=== PATIENT | male | born 1995 | race Caucasian/White ===

== ENCOUNTER → 2020-04-08 16:54 | Outpatient (CLI) | payer SELFPAY ==
[2014-10-19 03:15] VITALS: BMI 25.1
[2020-04-08 17:57] LABS: Absolute Lymphocyte Count 2.26 X10^3/uL (0.83-4.51); Absolute Neutrophil Count 3.7 X10^3/uL (2.0-7.7); Basophil# 0.06 X10^3/uL; Basophil% 0.9 % (0-1); Eosinophil# 0.16 X10^3/uL; Eosinophils% 2.4 % (0-5); Hematocrit 45.4 % (40-54); Hemoglobin 14.9 g/dL (13.0-16.5); Lymphocyte # 2.26 X10^3/ul (4.0); Lymphocyte % 33.7 % (19-41); Mean Corp Hgb Conc 32.8 g/dL (32-36); Mean Corpuscular Hgb 29.3 pg (27.0-32.0); Mean Corpuscular Volume 89.4 fL (80-94); Mean Platelet Vol. 11.5 fl (6.2-12.0); Monocyte# 0.46 X10^3/uL; Monocyte% 6.9 % (0-10); NRBC Flagged by Analyzer 0 % (0-5); Neutrophil # 3.74 X10^3/uL (2.7-7.7); Neutrophil % 55.8 % (47-70); Platelet Count 221 K/mm3 (150-450); RBC Distribution Width CV 12.3 % (11.6-14.6); RBC Distribution Width SD 40.5 fl (35.1-43.9); Red Blood Count 5.08 M/mm3 (4.6-6.2); White Blood Count 6.7 K/mm3 (4.4-11.0)
[2020-04-08 18:15] LABS: Erythrocyte Sedimentation Rate < 1 mm/hr (0-20)
[2020-04-08 18:33] LABS: CRP < 2.90 mg/L (0.0-3.0); Rheumatoid Factor < 10.0 IU/mL (<15); Uric Acid 4.9 mg/dL (3.5-7.2)
[2020-04-10 16:52] LABS: ANTINUCLEAR ANTIBODIES DIRECT Negative (Negative)
== END ==
PROVIDERS: PCP Family Medicine; Referring Provider Family Medicine; Visit Provider Family Medicine
DX: M25.50 Pain in unspecified joint (principal)
CPT/HCPCS: 36415; 84550; 85025; 85652; 86038; 86140; 86431

== ENCOUNTER → 2022-05-07 | Outpatient (CLI) | payer OTHER, SELFPAY ==
[2022-05-07 18:13] LABS: Color, Urine Yellow (Yellow); Glucose, Dipstick Normal (Normal); Ketone-Dipstick 5 mg/dl (Negative); Leukocyte Esterase-Dipstick 100 /ul (Negative); Nitrite-Dipstick Negative (Negative); Occult Blood-Urine Negative /ul (Negative); Protein-Dipstick 15 mg/dl (Negative); Urine Bilirubin Dipstick Negative (Negative); Urine Clarity Clear (Clear); Urine Urobilinogen 4 mg/dl (Normal)
[2022-05-07 18:40] LABS: ALB/GLOB Ratio 1.2 RATIO (0.9-2.4); AST(SGOT) 29 U/L (15-37); Alanine Aminotransfer ALT/SGPT 46 U/L (16-61); Albumin, Serum 3.8 g/dL (3.2-5.0); Alkaline Phosphatase 44 U/L (45-117); Anion Gap 6 (5-15); BUN 11 mg/dL (7-18); BUN/Creat Ratio 8.9 RATIO (10-20); Calcium,Total 8.7 mg/dL (8.5-10.1); Chloride 104 mmol/L (98-107); Creatinine, Serum 1.24 mg/dL (0.70-1.30); EST Glomerular Filtration Rate 73 mL/min (>60); Est Glom Filt Rate - Afr Amer 89 mL/min (>60); Globulin 3.3 g/dL (2.2-4.2); Glucose 90 mg/dL (74-106); Potassium 3.7 mmol/L (3.5-5.1); Protein, Total 7.1 g/dL (6.4-8.2); Sodium Level 139 mmol/L (136-145)
[2022-05-07 19:32] LABS: HIV - WCH Non-Reactive (Nonreactive); Syphilis Antibodies Reactive
[2022-05-07 19:41] LABS: Chlamydia Trachomatis by PCR Negative (Negative); Neisserai gonorrhoeae by PCR Negative (Negative); Probe Check PASS; Sample Adequacy Control PASS; Specimen Processing Control PASS
== END | disposition home or self-care (01) ==
PROVIDERS: PCP Family Medicine; Visit Provider Family Medicine
DX: Z00.00 Encounter for general adult medical examination without abnormal findings (principal); Z11.3 Encounter for screening for infections with a predominantly sexual mode of transmission
CPT/HCPCS: 80053; 81002; 86703; 86780; 87491; 87591

== ENCOUNTER 2023-08-27 20:14 | Emergency (ER) | payer OTHER, SELFPAY ==
[2023-08-27 20:16] VITALS: BP 153/75; PULSE 81; RESP 16; TEMP 36.2; O2SAT 100; BMI 28.0
--- NOTE | 2023-08-27 21:02 | CT_ITS ---
STUDY: CT BRAIN WITHOUT CONTRAST REASON FOR EXAM: Male, 28 years old. HEAD INJURY RADIATION DOSAGE (If Supplied By Facility): CTDIvol = ( 44.99 ) mGy, DLP = ( 796.11 ) mGycm TECHNIQUE: Transaxial CT imaging of the brain was performed without administration of intravenous contrast material. Individualized dose optimization techniques were used for this CT. COMPARISON: No relevant priors. FINDINGS: Normal soft tissue structures. Normal calvarium. Normal size ventricles and extra-axial spaces for the patient''s age. Normal white matter tracts of the cerebral hemispheres. Normal basal ganglia and thalami. Normal brainstem. Normal cerebellum. There is no intracranial hemorrhage. There are no findings of an acute ischemic infarction. Normal visualized paranasal sinuses. CT/Brain/Head without Contrast IMPRESSION: Normal unenhanced CT scan of the brain. Electronically Signed: Gentry Monique MD at 22:19 EDT ,
--- NOTE | 2023-08-27 21:03 | EX.ED.DYSGE1 ---
HPI History of Present Illness Chief Complaint: General Illness Informant: patient Onset/Context/Timing Onset: Days Context: Gradual Onset Timing: Continuous Current Severity: Mild Maximum Severity: Mild Narrative Narrative: 28-year-old male history of prior trauma causing right foot drop. Taking out a bathtub last a piece of the fiberglass cast snapped it was spring loaded and hit him in his left scalp.. He had a minor laceration that time. Never got evaluated. He has been having intermittent headaches and feeling lightheaded. Otherwise before that he said he felt fine. He has not been ill recently. He denies vomiting or diarrhea. No fever. Patient does take steroids for lifting and send otherwise has been feeling fine before the head injury. Prior similar symptoms: No Recent Illness/Hospitalization: No PFSH PFSH Medical History no medical history Home Medications ?Medication ?Instructions ?Recorded ?Last Taken ?Type diphenhydramine HCl 25 mg capsule 25 mg PO TID PRN PRN Itching ##20 10/19/14 Unknown Rx (Banophen) ibuprofen 400 mg tablet (IBU) 400 mg PO Q8H 08/27/23 Unknown History Allergy/AdvReac Type Severity Reaction Status Date / Time No Known Allergies Allergy Verified 08/27/23 20:19 Social History Smoking Status: Never smoker ROS ROS ED ROS Narrative Lightheadedness. Headaches. After head injury. Review of Systems ROS Unobtainable: Denies due to encephalopathy Constitutional Constitutional ED: Denies chills or fever(s) Eyes Eyes: Denies blurry vision ENT ENT ED: Denies ear pain Cardiovascular Cardiovascular: Denies chest pain Respiratory/Chest Respiratory/Chest: Denies cough or dyspnea Gastrointestinal Gastrointestinal: Denies abdominal pain Genitourinary Genitourinary ED: Denies dysuria or hematuria Musculoskeletal Musculoskeletal: Denies arthralgias or back pain Integumentary Denies abscess or Abrasions Neurologic Neurologic: Reports headache(s) Psychiatric Psychiatric: Denies anxiety or depression Endocrine Endocrinology: Denies cold intolerance Hematologic/Lymphatic Hematologic/Lymphatic: Reports none Allergic/Immunologic Allergic/Immunologic ED: Denies mouth swelling, tongue swelling or urticaria EXAM Physical Exam Narrative Exam Narrative: 28-year-old male no acute distress vital signs stable afebrile. H EENT exam pupils round reactive light. TMs normal. No facial trauma. Well-healed minor superficial laceration left scalp about an inch. No signs of infection or hematoma. Neck nontender. Lungs clear to auscultation. Heart regular rate and rhythm no murmur rate about 80. Chest wall ribs nontender. Abdomen soft nontender. Moving all 4 extremities. 5 of 5 aqua ammonia operator strength. Dorsi plantarflexion intact. No edema. Neurologically is awake alert no focal motor deficits. GCS 15. NIH 0. Const Vital Signs: 08/27/23 20:16 08/27/23 20:23 Temperature 97.2 F L Temperature Source Temporal Pulse Rate 81 Respiratory Rate 16 Respiratory Pattern Normal Blood Pressure 153/75 H Blood Pressure Mean 101 Pulse Ox 100 Oxygen Delivery Method Room Air Positive well nourished and well developed; Negative for obese, cachectic, contractures or unkempt General Appearance ED: well developed and NAD; Negative for unkempt, cachectic, contractures, cyanotic, diaphoretic or pallor Nutritional Appearance: Negative for cachectic or obese HEENT Reports moist mucous membranes; Denies dry mucous membranes Negative for trauma or tenderness Mouth ED: No dry mucous membranes Mouth: No dry mucous membranes Eyes PERRL and EOMs intact bilaterally General Eye ED: Negative for pale conjunctiva or scleral icterus Neck no lymphadenopathy, supple and no JVD General: Negative for tenderness Lymph Lymphatic: Negative for other Chest Wall inspection of chest normal and palpation of chest normal Chest: Negative for other Resp clear to auscultation bilaterally Effort and Inspection: Negative for retractions Auscultation: Negative for rales, rhonchi or wheezes Cardio regular rate, regular rhythm, S1 normal heart sound, S2 normal heart sound and no murmurs Palpation: Negative for palpable S3 or palpable S4 Rate: Negative for bradycardia or tachycardic Rhythm: Negative for abnormal rhythm GI normal to inspection, nondistended, normoactive bowel sounds, non-tender, non-distended and no masses Inspection: Negative for abdominal distention Auscultation: normoactive bowel sounds Palpation: soft; Negative for tender, guarding or rebound tenderness present Back/Spine no CVA tenderness General Back: Negative for CVA tenderness or other Cervical Spine: Negative for cervical spine tenderness Thoracic Spine / Upper Back: Negative for thoracic spinal tenderness or paraspinal muscle tenderness Lumbar Spine / Lower Back: Negative for lumbar spinal tenderness Extremity normal to inspection Extremity Narrative: Except he has a right foot drop from a prior injury as a child with a sciatic nerve laceration. General Extremety ED: Yes other findings; Negative for edema or tenderness General Extremity: other findings; Negative for edema Neuro oriented x3 and CN's II-XII intact bilaterally Sensorium / Orientation: alert and orientation impaired; Negative for lethargic or stuporous Motor Exam: strength 5/5 throughout Psych mental status grossly normal Appearance: Negative for unkempt Attitude: No agitated Mood & Affect: Negative for depressed, anxious or tearful Skin no rashes or lesions noted, no wounds and skin turgor normal General Skin Exam: elasticity normal; Negative for jaundice or pallor Lesions: No lesion noted Rashes: No rashes noted Trauma: Negative for abrasion Wounds: Negative for wounds noted MDM MDM MDM Narrative Medical decision making narrative: 28-year-old male has not felt well for the last 4 days since he had a head injury. He was not knocked out. He is on no blood thinners. Is a normal neurologic exam. I suspect he has a concussion. He has no other symptoms. Will obtain a CT of his head. Repeat exam at 10:10 PM. Patient is doing well. Heart and lung exam normal. He ambulated in the room without any difficulty. Awaiting his CAT scan results. I reviewed his CAT scan myself is unremarkable. History & Record Review Discussion w/independent historian: Patient Additional record(s) reviewed:: Prior inpatient record, Prior outpatient record, Prior ED visit and Prior labs Discharge Plan Triage Chief Complaint: General Illness ED Provider: Theron Jaquez Dx/Rx/DC Orders Clinical Impression: Head injury, Concussion Instructions: ED Concussion Prescriptions: No Action diphenhydramine HCl [Banophen] 25 MG capsule 25 mg PO TID PRN PRN (Reason: Itching) Qty: 20 0RF ibuprofen [IBU] 400 mg tablet 400 mg PO Q8H Primary Care Provider: Eren Shine Referrals: Eren Shine MD [Primary Care Provider] - 1 Week if not improving Activity Restrictions/Additional Instructions: CAT scan was normal. Most likely you have a mild concussion. That can give you headaches, nausea. Fatigue and increased sleep. This should progressively improve. If you are not getting better follow-up with your primary care physician in 1 to 2 weeks. At this time you do not need any lab work. Print Language: Faroese Disposition Disposition: Home, Self Care
[2023-08-27 22:30] VITALS: BP 153/75; PULSE 75; RESP 14; TEMP 36.2; O2SAT 100
== END 2023-08-27 22:31 | disposition home or self-care (01) ==
PROVIDERS: Emergency Provider Emergency Medicine; PCP Family Medicine; Visit Provider Emergency Medicine
DX: S06.0X0A Concussion without loss of consciousness, initial encounter (principal); W22.8XXA Striking against or struck by other objects, initial encounter
CPT/HCPCS: 70450; 99282

== ENCOUNTER 2024-07-29 16:07 | Outpatient (CLI) | payer OTHER, SELFPAY ==
--- NOTE | 2024-07-29 16:12 | RAD_ITS ---
PROCEDURE: SHOULDER MIN 2 VIEWS 07/29/2024 REASON FOR EXAM: PAIN RT SHOUDER TECHNIQUE: Four views of the right shoulder COMPARISON: None RAD/Shoulder min 2 Views IMPRESSION: No acute fracture or dislocations. No acute soft tissue abnormalities. No rad iographic foreign body. Reading Location: [id number]
[2024-07-29 18:50] LABS: Syphilis Antibodies Reactive (Nonreactive)
[2024-07-29 20:08] LABS: HIV Nonreactive (Nonreactive)
--- OUTSIDE RECORDS SUMMARY | 2024-07-29 22:03 | XMS RPT_ITS | CCD ---
Author Organization [facility] Care Team Providers Care Mobile Application Architect Name Role Phone Theron Jaquez Attending Unavailable Dorian Shine Primary Care Unavailable Dorian Shine MD Primary Care Provider DORIAN SHINE Primary Care Dez e DORIAN SHINE Primary Care Dez rodriguez Allergies Allergy Classification Reported Allergen(s) Allergy Type Date of Onset Reaction(s) Facility (5 sources) Acetaminophen / HYDROcodone; Translations: [HYDROCODONE-ACETA MINOPHEN] Drug Allergy 02-16-2024 GI Upset [facility] Medications Current Medications Medication Drug Class(es) Dates Sig (Normalized) Sig (Original) ciprofloxacin 2 mg/ml / hydrocortisone 10 mg/ml otic suspension (4 sources) Corticosteroid, Quinolone Antimicrobial Start: 07-24-2017 ciprofloxacin-hydroc ortisone (CIPRO HC) otic suspension Indications: Acute swimmer's ear of right side Use 3 Drops in the right ear twice daily. 1 Bottle 07/24/2017 Active Creatine (1 source) Start: 06-10-2013 Creatine Monohydrate (Bulk) Active 5000 GM MC DAILY June 10, 2013 12:00am diphenhydrAMINE hydrochloride 25 mg oral capsule (1 source) Histamine-1 Receptor Antagonist Start: 10-19-2014 take 1 capsule by mouth three times daily as needed Diphenhydramine Hcl (Benadryl) 25 MG capsule Active 25 MG PO 3 TIMES DAILY NEEDED October 19, 2014 12:00am Problems Active Problems Problem Classification Problem Date Documented Date Episodic/Chronic Immunizations and screening for infectious disease (2 sources) At risk of sexually transmitted infection ; Translations: [Contact with and (suspected) exposure to infections with a predominantly sexual mode of transmission] 02-16-2024 Episodic Residual codes; unclassified (1 source) Illness, unspecified; Translations: [Illness, unspecified] Onset: 09-05-2023 Episodic Past or Other Problems Problem Classification Problem Date Documented Da te Episodic/Chronic Other injuries and conditions due to external causes (4 sources) Injury of sciatic nerve; Translations: [Injury of sciatic nerve at hip and thigh level, unspecified leg, initial encounter] Onset: 05-29-2007 02-10-2013 Episodic Results Test Name Value Interpretation Reference Range Facil ity C. trachomatis+N. gonorrhoea e DNA TERESITA+probe Ql (Unsp spec)on 06-08-2024 C. trachomatis rRNA TERESITA+probe Ql (Unsp spec) Not detected Normal Not detected [facility] Comment on above: Order Comment: Speci men Type: URINE SPECIMEN Ordering Facility: [facility] Address: [address] [place] [address] Performed By: #### 3 6902-5, TRVAMP #### [facility] CLIA [id number] [address] [place] [address] [place] N. gonorrhoeae rRNA TERESITA+probe Ql (Unsp spec) Not detected Normal Not detected [facility] Comment on above: Order Comment: Speci men Type: URINE SPECIMEN Ordering Facility: [facility] Address: [address] [place] [address] Performed By: #### 3 6902-5, TRVAMP #### [facility] CLIA [id number] [address] [place] [address] [place] CNOVon 06-08-2024 CNOV Office Visit ([facility]) -------- IVAN OVIEDO ([id number]) 1995 M Date Time Provider Department 06/08/24 4:00 PM NEHA PROCTOR [facility] During your visit today, we recorded the following information about you: Temperature Pulse Respiration Blood pressure 98.4 degrees 88/minute 16/minute 122/80 Weight 92.4 kg Neha Proctor APRN.CNP 06/08/2024 4:38 PM Signed [facility] Subjective HPI HPI Ivan Oviedo is a 28 year old male who presents today for CC of possible std exposure 2 weeks ago. Denies any symptoms today. 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 (Patient not taking: Reported on 02/16/2024) FAMILY HISTORY Problem Relation Age of Onset None Father None Mother Diabetes Paternal Grandfather None Paternal Grandmother Cancer Maternal Grandfather ESOPHAGEAL other (CIRRHOSIS OF LIVER [Other]) Maternal Grandfather Heart Maternal Grandmother Social History Tobacco Use Smoking status: Never Smokeless tobacco: Never Substance Use Topics Alcohol use: No Drug use: No Review of Systems Constitutional: Negative for fever. Cardiovascular: Negative for chest pain. Gastrointestinal: Negative for abdominal pain, constipation, diarrhea, nausea and vomiting. Genitourinary: Negative for dysuria, flank pain, frequency and urgency. Musculoskeletal: Negative for back pain. Objective BP 122/80 Pulse 88 Temp 36.9 ?C (98.4 ?F) Resp 16 Wt 92.4 kg (203 lb 11.3 oz) SpO2 97% Physical Exam Constitutional: General: He is not in acute distress. Appearance: He is not ill-appearing, toxic-appearing or diaphoretic. HENT: Head: Normocephalic and atraumatic. Right Ear: Hearing, tympanic membrane, ear canal and external ear normal. Left Ear: Hearing, tympanic membrane, ear canal and external ear normal. Nose: Nose normal. Mouth/Throat: Pharynx: Uvula midline. Eyes: General: Lids are normal. No scleral icterus. Right eye: No discharge. Left eye: No discharge. Conjunctiva/sclera : Conjunctivae normal. Pupils: Pupils are equal, round, and reactive to light. Neck: Trachea: Trachea normal. Cardiovascular: Rate and Rhythm: Normal rate and regular rhythm. Heart sounds: Normal heart sounds. Pulmonary: Effort: Pulmonary effort is normal. Breath sounds: Normal breath sounds. Musculoskeletal: Cervical back: Normal range of motion and neck supple. Lymphadenopathy: Cervical: No cervical adenopathy. Skin: Findings: No rash. Neurological: Mental Status: He is alert and oriented to person, place, and time. {ASSESSMENT/PLAN: 1. Possible exposure to STD - ICD9: V01.6, ICD10: Z20.2 No treatment today Call and treat per results - GONORRHEA/CHLAMYDI A NAAT - TRICHOMONAS VAGINALIS NAAT Neha Proctor APRN.PLUG SAW OPERATOR History and Record Review External record(s) reviewed: prior outpatient record. Disposition The patient was discharged. Procedures Allergies As of Date: 06/08/2024 Noted Allergy Reaction VICODIN (HYDROCODONE-ACETA MINOPHE*02/16/2024 8 - GI Upset Comments: Nausea Date Reviewed: 06/08/2024 Reviewed by: Ayde Hurtado MA - Fully Assessed Reason for Visit: Std Exposure [275] Primary Visit Diagnosis:Possible exposure to STD [Z20.2] Order(s):GONORRHEA /CHLAMYDIA NAAT [SQGCCT] Order #: [id number]. #:[id number] TRICHOMONAS VAGINALIS NAAT [SQTRVAMP] Order #: [id number]. #:[id number] Prescriptions as of 06/08/2024 - ciprofloxacin-hydr ocortisone (CIPRO HC) otic suspension Use 3 Drops in the right ear twice daily. Problem List As Of Date 06/08/2024 Noted Resolved Injury to sciatic nerve [S74.00XA] 05/29/2007 Encounter Status:Closed by NEHA PROCTOR on 06/08/24 Normal [facility] TRICHOMONAS VAGINALIS NAATon 06-08-2024 T. vaginalis DNA TERESITA+probe Ql (Unsp spec) Not detected Normal Not detected [facility] Comment on above: Order Comment: Speci men Type: URINE SPECIMEN Ordering Facility: [facility] Address: [address] [place] [address] Performed By: #### 3 6902-5, RUTHANN #### [facility] CLIA [id number] [address] [place] [address] OF [facility] Radha 02-17-2024 CNPN Telephone ([facility]) -------- IVAN OVIEDO ([id number]) 1995 Date Time Provider Department 02/17/24 ROSA PRADO [facility] During your visit today, we recorded the following information about you: Rosa Prado PA 02/17/2024 8:36 AM Signed Negative for chlamydia and gonorrhea Eloisa Leal MA 02/17/2024 9:12 AM Signed Patient notified of results, verbalizes understanding of instructions. Eloisa Leal MA Allergies As of Date: 02/17/2024 Noted Allergy Reaction VICODIN (HYDROCODONE-ACETA MINOPHE*02/16/2024 8 - GI Upset Comments: Nausea Date Reviewed: 02/16/2024 Reviewed by: Sera Gallegos APRN.PLUG SAW OPERATOR - Fully Assessed Reason for Visit: Results [95] Prescriptions as of 02/17/2024 - ciprofloxacin-hydr ocortisone (CIPRO HC) otic suspension Use 3 Drops in the right ear twice daily. Problem List As Of Date 02/17/2024 Noted Resolved Injury to sciatic nerve [S74.00XA] 05/29/2007 Encounter Status:Closed by ELOISA LEAL on 02/17/24 Normal [facility] C. trachomatis+N. gonorrhoea e DNA TERESITA+probe Ql (Unsp spec)on 02-16-2024 C. trachomatis rRNA TERESITA+probe Ql (Unsp spec) Not detected Normal Not detected [facility] Comment on above: Order Comment: Speci men Type: URINE SPECIMEN Ordering Facility: [facility] Address: [address] [place] [address] Performed By: #### 3 6902-5 #### [facility] CLIA [id number] [address] [place] [address] OF [facility] N. gonorrhoeae rRNA TERESITA+probe Ql (Unsp spec) Not detected Normal Not detected [facility] Comment on above: Order Comment: Speci men Type: URINE SPECIMEN Ordering Facility: [facility] Address: [address] [place] [address] Performed By: #### 3 6902-5 #### [facility] CLIA [id number] [address] [place] [address] OF [facility] CNOVon 02-16-2024 [facility] IVAN OVIEDO ([id number]) 1995 M Date Time Provider Department 02/16/24 2:15 PM SERA GALLEGOS [facility] During your visit today, we recorded the following information about you: Temperature Pulse Respiration Blood pressure 97.2 degrees 56/minute 18/minute 133/64 Weight 89.9 kg Sera Gallegos APRN.CNP 02/16/2024 3:08 PM Signed Subjective HPI Nontoxic-appearing male presents urgent care chief complaint possible STD exposure. States was possibly exposed to gonorrhea. History of syphilis. Previously treated. Denies any other history of STDs. States he is sexually active. Does not always use protection. States that his male partner. States did not receive anal intercourse. States did perform oral intercourse. Denies any pharyngitis. denies any testicular pain penile drainage scrotal swelling dysuria frequency urgency fever nausea vomiting abdominal pain. Past medical history prescription medications allergies reviewed. 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 (Patient not taking: Reported on 02/16/2024) FAMILY HISTORY Problem Relation Age of Onset None Father None Mother Diabetes Paternal Grandfather None Paternal Grandmother Cancer Maternal Grandfather ESOPHAGEAL other (CIRRHOSIS OF LIVER [Other]) Maternal Grandfather Heart Maternal Grandmother Social History Tobacco Use Smoking status: Never Smokeless tobacco: Never Substance Use Topics Alcohol use: No Drug use: No Review of Systems Constitutional: Negative for chills, fever and malaise/fatigue. HENT: Negative for sore throat. Cardiovascular: Negative for chest pain. Gastrointestinal: Negative for abdominal pain, constipation, diarrhea, nausea and vomiting. Genitourinary: Negative for dysuria, flank pain, frequency, hematuria and urgency. Musculoskeletal: Negative for myalgias. Objective Physical Exam Vitals and nursing note reviewed. Constitutional: General: He is not in acute distress. Appearance: He is not diaphoretic. HENT: Head: Jaw: No trismus. Right Ear: Hearing normal. No decreased hearing noted. No drainage, swelling or tenderness. Tympanic membrane is not perforated, erythematous or bulging. Left Ear: Hearing normal. No decreased hearing noted. No drainage, swelling or tenderness. Tympanic membrane is not perforated, erythematous or bulging. Mouth/Throat: Pharynx: Uvula midline. No uvula swelling. Tonsils: No tonsillar abscesses. Cardiovascular: Rate and Rhythm: Normal rate and regular rhythm. Pulses: Normal pulses. Pulmonary: Effort: Pulmonary effort is normal. No respiratory distress. Breath sounds: Normal breath sounds. Chest: Chest wall: No tenderness. Abdominal: General: Bowel sounds are normal. There is no distension. Palpations: Abdomen is soft. Abdomen is not rigid. Tenderness: There is no abdominal tenderness. There is no right CVA tenderness, left CVA tenderness, guarding or rebound. Negative signs include Ley's sign and McBurney's sign. Genitourinary: Comments: Deferred exam Musculoskeletal: General: No tenderness. Lymphadenopathy: Head: Right side of head: No submental, submandibular, tonsillar, preauricular, posterior auricular or occipital adenopathy. Left side of head: No submental, submandibular, tonsillar, preauricular, posterior auricular or occipital adenopathy. Cervical: Right cervical: No superficial or posterior cervical adenopathy. Left cervical: No superficial or posterior cervical adenopathy. Skin: General: Skin is warm and dry. Findings: No rash. Neurological: Mental Status: He is alert and oriented to person, place, and time. ASSESSMENT/PLAN: 1. Possible exposure to STD - ICD9: V01.6, ICD10: Z20.2 - GONORRHEA/CHLAMYDI A NAAT Urine dip POC negative. Diagnosed with possible STD exposure. Will obtain gonorrhea chlamydia via urine test. Treat accordingly test results. Patient was educated on supportive therapies. Patient will follow up with primary care provider as needed. Patient was instructed to immediately proceed to emergency room for any new, worsening, or symptoms lasting longer than anticipated. The patient's clinical pr (more content not included)... Normal [facility] UA DIP, URINE (POC)on 2023 BILIRUBIN UA (POCT) Negative Negative [facility] CLARITY UA (POCT) Clear [facility] COLOR UA (POCT) Yellow [facility] GLUCOSE UA (POCT) Negative Negative mg/dL [facility] Hemoglobin Ql (U) Negative Negative [facility] KETONE UA (POCT) Negative Negative mg/dL [facility] LEUKOCYTES UA (POCT) Negative Negative [facility] NITRITE UA (POCT) Negative Negative [facility] PH UA (POCT) 7.0 4.5 - 8.0 [facility] Protein Ql (U) Negative Negative mg/dL [facility] SPECIFIC GRAVITY UA (POCT) 1.020 1.005 - 1.030 [facility] UROBILINOGEN UA (POCT) 1.0 Normal E.U./d L [facility] Location:[facility], [address] [place], [address] [facility] POINT OF CARE [facility] Brain/Head without Contrasto n 08-27-2023 Brain/Head without Contrast [facility] Imaging Services [address] [place], [place] [address] Brain/Head without Contrast MR#: [id number] Acct: [id number] Name: IVAN OVIEDO Rep #: [id number] : 1995 M 28 From: Gentry Monique MD PCP: Dr. Dorian Shine MD Status: REG ER Study: Brain/Head without Contrast Date of Exam: 04/20 Exam# [id number] Ordering Dr: Theron Jaquez MD [id number] STUDY: CT BRAIN WITHOUT CONTRAST REASON FOR EXAM: Male, 28 years old. HEAD INJURY RADIATION DOSAGE (If Supplied By Facility): CTDIvol = ( 44.99 ) mGy, DLP = ( 796.11 ) mGycm TECHNIQUE: Transaxial CT imaging of the brain was performed without administration of intravenous contrast material. Individualized dose optimization techniques were used for this CT. COMPARISON: No relevant priors. FINDINGS: Normal soft tissue structures. Normal calvarium. Normal size ventricles and extra-axial spaces for the patient''s age. Normal white matter tracts of the cerebral hemispheres. Normal basal ganglia and thalami. Normal brainstem. Normal cerebellum. There is no intracranial hemorrhage. There are no findings of an acute ischemic infarction. Normal visualized paranasal sinuses. CT/Brain/Head without Contrast IMPRESSION: Normal unenhanced CT scan of the brain. Electronically Signed: Gentry Monique MD at 22:19 EDT , CC: Dr. Dorian Shine MD; Dr. Theron Jaquez MD Stuffing Machine Operator: Signed Normal [facility] Emergency Department Summary on 08-27-2023 Emergency Department Summary [facility] Medical Records Department [address] [place] [address] Emergency Department Summary 08/27/23 MR#: [id number] Acct: [id number] Name: IVAN OVIEDO Rep #: [id number] : 1995 28 From: Theron Jaquez MD PCP: Dr. Dorian Shine MD Status:DEP ER Location: ED HPI History of Present Illness Chief Complaint: General Illness Informant: patient Onset/Context/[place] Onset: Days Context: Gradual Onset Timing: Continuous Current Severity: Mild Maximum Severity: Mild Narrative Narrative: 28-year-old male history of prior trauma causing right foot drop. Taking out a bathtub last a piece of the fiberglass cast snapped it was spring loaded and hit him in his left scalp.. He had a minor laceration that time. Never got evaluated. He has been having intermittent headaches and feeling lightheaded. Otherwise before that he said he felt fine. He has not been ill recently. He denies vomiting or diarrhea. No fever. Patient does take steroids for lifting and send otherwise has been feeling fine before the head injury. Prior similar symptoms: No Recent Illness/Hospitaliz ation: No PFSH PFS Medical History no medical history Home Medications ???Medication ???Instructions ???Recorded ???Last Taken ???Type diphenhydramine HCl 25 mg capsule 25 mg PO TID PRN PRN Itching ##20 10/19/14 Unknown Rx (Banophen) ibuprofen 400 mg tablet (IBU) 400 mg PO Q8H 08/27/23 Unknown History Allergy/AdvReac Type Severity Reaction Status Date / Time No Known Allergies Allergy Verified 08/27/23 20:19 Social History Smoking Status: Never smoker ROS ROS ED ROS Narrative Lightheadedness. Headaches. After head injury. Review of Systems ROS Unobtainable: Denies due to encephalopathy Constitutional Constitutional ED: Denies chills or fever(s) Eyes Eyes: Denies blurry vision ENT ENT ED: Denies ear pain Cardiovascular Cardiovascular: Denies chest pain Respiratory/Chest Respiratory/Chest: Denies cough or dyspnea Gastrointestinal Gastrointestinal: Denies abdominal pain Genitourinary Genitourinary ED: Denies dysuria or hematuria Musculoskeletal Musculoskeletal: Denies arthralgias or back pain Integumentary Denies abscess or Abrasions Neurologic Neurologic: Reports headache(s) Psychiatric Psychiatric: Denies anxiety or depression Endocrine Endocrinology: Denies cold intolerance Hematologic/Lympha tic Hematologic/Lympha tic: Reports none Allergic/Immunolog ic Allergic/Immunolog ic ED: Denies mouth swelling, tongue swelling or urticaria EXAM Physical Exam Narrative Exam Narrative: 28-year-old male no acute distress vital signs stable afebrile. H EENT exam pupils round reactive light. TMs normal. No facial trauma. Well-healed minor superficial laceration left scalp about an inch. No signs of infection or hematoma. Neck nontender. Lungs clear to auscultation. Heart regular rate and rhythm no murmur rate about 80. Chest wall ribs nontender. Abdomen soft nontender. Moving all 4 extremities. 5 of 5 divine healer strength. Dorsi plantarflexion intact. No edema. Neurologically is awake alert no focal motor deficits. GCS 15. NIH 0. Const Vital Signs: 08/27/23 20:16 08/27/23 20:23 Temperature 97.2 F L Temperature Source Temporal Pulse Rate 81 Respiratory Rate 16 Respiratory Pattern Normal Blood Pressure 153/75 H Blood Pressure Mean 101 Pulse Ox 100 Oxygen Delivery Method Room Air Positive well nourished and well developed; Negative for obese, cachectic, contractures or unkempt General Appearance ED: well developed and NAD; Negative for unkempt, cachectic, contractures, cyanotic, diaphoretic or pallor Nutritional Appearance: Negative for cachectic or obese HEENT Reports moist mucous membranes; Denies dry mucous membranes Negative for trauma or tenderness Mouth ED: No dry mucous membranes Mouth: No dry mucous membranes Eyes PERRL and EOMs intact bilaterally General Eye ED: Negative for pale conjunctiva or scleral icterus Neck no lymphadenopathy, supple and no JVD General: Negative for tenderness Lymph Lymphatic: Negative for other Chest Wall inspection of chest normal and palpation of chest normal Chest: Negative for other Resp clear to auscultation bilaterally Effort and Inspection: Negative for retractions Auscultation: Negative for rales, rhonchi or wheezes Cardio regular rate, regular rhythm, S1 normal heart sound, S2 normal heart sound and no murmurs Palpation: Negative for palpable S3 or palpable S4 Rate: Negative for bradycardia or tachycardic Rhythm: Negative for abnormal rhythm GI normal to inspection, nondistended, normoactive bowel sounds, non-tender, non-distended and no masses Inspection: Negative fo (more content not included)... Normal [facility] Basophil percentageOrdered B y: Dr. Shine on 05-07-2022 C. trachomatis DNA TERESITA+probe Ql (Unsp spec) Negative Negative [facility] Bilirubin [Mass/Vol] 1.20 mg/dL 0.20-1.00 [facility] Comment on above: For patients on eltr ombopag therapy, use of Dimension [place] TBIL is not recommended. Chloride [Moles/Vol] 104 mmol/L 98-107 [facility] Glucose [Mass/Vol] 90 mg/dL 74-106 [facility] Potassium [Moles/Vol] 3.7 mmol/L 3.5-5.1 [facility] Protein [Mass/Vol] 7.1 g/dL 6.4-8.2 [facility] Sodium [Moles/Vol] 139 mmol/L 136-145 [facility] Bilirubin Test strip Ql (U)O rdered By: Dr. Shine on 05-07-2022 Bilirubin Ql (U) Negative Negative [facility] HIV 1 and HIV-2 antibody ass ay with HIV-1 p24 antigen detectionOrdered By: Dr. Shine on 05-07-2022 HIV 1+2 Ab+HIV1 p24 Ag IA Ql Non-Reactive Nonreactive [facility] Ketones Test strip Ql (U)Ord ered By: Dr. Shine on 05-07-2022 Ketones Ql (U) 5 mg/dl Negative [facility] Laboratory - Chemistry and C hemistry - challengeOrdered By: Dr. Shine on 05-07-2022 ALP [Catalytic activity/Vol] 44 U/L 45-[address] [facility] ALT [Catalytic activity/Vol] 46 U/L 16-[address] [facility] CO2 [Moles/Vol] 29.0 mmol/L 21.0-32.[address] [facility] Globulin (S) [Mass/Vol] 3.3 g/dL 2.2-4.2 [facility] Urea nitrogen/Creatinine [Mass ratio] 8.9 mg/mg 10-[address] [facility] Neisseria gonorrhoeae detect ion by PCROrdered By: Dr. Shine on 05-07-2022 N. gonorrhoeae DNA TERESITA+probe Ql (Cervical mucus) Negative Negative [facility] Nitrite Test strip Ql (U)Ord ered By: Dr. Shine on 05-07-2022 Nitrite Ql (U) Negative Negative [facility] No Panel InformationOrdered By: Dr. Shine on 05-07-2022 Estimated GFR (MDRD) Amer 89 mL/min >[address] [facility] Comment on above: GFR Calc Estimated GFR (MDRD) Non-Af Amer 73 mL/min >[address] [facility] Comment on above: Non- GFR Calc Protein Test strip Ql (U)Ord ered By: Dr. Shine on 05-07-2022 Protein Ql (U) 15 mg/dl Negative [facility] Serum Treponema species anti body detectionOrdered By: Dr. Shine on 05-07-2022 Treponema sp Ab Ql (S) Reactive [facility] Serum or plasma albumin acacia urement (mass/volume)Ordered By: Dr. Shine on 05-07-2022 Albumin [Mass/Vol] 3.8 g/dL 3.2-5.0 [facility] Serum or plasma albumin/glob ulin mass ratioOrdered By: Dr. Shine on 05-07-2022 Albumin/Globulin [Mass ratio] 1.2 {ratio} 0.9-2.[address] [facility] Serum or plasma calcium acacia urement (mass/volume)Ordered By: Dr. Shine on 05-07-2022 Calcium [Mass/Vol] 8.7 mg/dL 8.5-10.1 [facility] Serum or plasma creatinine m easurement (mass/volume)Ordered By: Dr. Shine on 05-07-2022 Creatinine [Mass/Vol] 1.24 mg/dL 0.70-1.30 [facility] Comment on above: The validity of the calculated GFR & GFRAA in patients over 70 years has not been determined. Clinical correlation is essential. Serum or plasma urea nitroge n measurement (mass/volume)Ordered By: Dr. Shine on 05-07-2022 Urea nitrogen [Mass/Vol] 11 mg/dL 7-[address] [facility] Thin prep Papanicolaou smear with manual screeningOrdered By: Dr. Shine on 05-07-2022 Thin prep Papanicolaou smear with manual screening 29 U/L 15-[address] [facility] Thin prep Papanicolaou smear with manual screening 6 5-[address] [facility] Urine blood detectionOrdered By: Dr. Shine on 05-07-2022 RBC Ql (U) Negative Negative [facility] Urine clarityOrdered By: Dr. Shine on 05-07-2022 Clarity (U) Clear Clear [facility] Urine color determinationOrd ered By: Dr. Shine on 05-07-2022 Color (U) Yellow Yellow [facility] Urine glucose detectionOrder ed By: Dr. Shine on 05-07-2022 Glucose Ql (U) Normal mg/dl Normal [facility] Urine leukocyte esterase det ection by dipstickOrdered By: Dr. Shine on 05-07-2022 Leukocyte esterase Test strip Ql (U) 100 /ul Negative [facility] Urine pHOrdered By: Dr. Adalgisa sanchez on 05-07-2022 pH (U) 7.0 [pH] 5.0 - 8.[address] [facility] Urine specific gravity measu rementOrdered By: Dr. Shine on 05-07-2022 Specific gravity (U) [Rel density] 1.010 1.002-1.[address] [facility] Urobilinogen Auto test strip Ql (U)Ordered By: Dr. Shine on 05-07-2022 Urobilinogen Ql (U) 4 mg/dl Normal [facility] Vital Signs Date Time Vital Sign Value Performing Clinician Faci lity 06-08-2024 15:57-0400 Body temperature 98.4 [degF] Neha Hitesh SONAR SUBSYSTEM EQUIPMENT OPERATOR.PLUG SAW OPERATOR Work Phone: [facility] 06-08-2024 15:57-0400 Body weight 92.4 kg Neha Proctor SONAR SUBSYSTEM EQUIPMENT OPERATOR.PLUG SAW OPERATOR Work Phone: [facility] 06-08-2024 15:57-0400 Diastolic blood pressure 80 mm[Hg] Neha Hitesh SONAR SUBSYSTEM EQUIPMENT OPERATOR.PLUG SAW OPERATOR Work Phone: [facility] 06-08-2024 15:57-0400 Heart rate 88 /min Neha Hitesh SONAR SUBSYSTEM EQUIPMENT OPERATOR.PLUG SAW OPERATOR Work Phone: [facility] 06-08-2024 15:57-0400 Respiratory rate 16 /min Neha Hitesh SONAR SUBSYSTEM EQUIPMENT OPERATOR.PLUG SAW OPERATOR Work Phone: [facility] 06-08-2024 15:57-0400 SaO2% (BldA) [Mass fraction] 97 % Neha Proctor SONAR SUBSYSTEM EQUIPMENT OPERATOR.PLUG SAW OPERATOR Work Phone: [facility] 06-08-2024 15:57-0400 Systolic blood pressure 122 mm[Hg] Neha Proctor SONAR SUBSYSTEM EQUIPMENT OPERATOR.PLUG SAW OPERATOR Work Phone: [facility] 02-16-2024 14:25-0500 Body temperature 97.2 [degF] Sera Pendbury SONAR SUBSYSTEM EQUIPMENT OPERATOR.PLUG SAW OPERATOR Work Phone: [facility] 02-16-2024 14:25-0500 Body weight 89.9 [facility] SONAR SUBSYSTEM EQUIPMENT OPERATOR.PLUG SAW OPERATOR Work Phone: [facility] 02-16-2024 14:25-0500 Diastolic blood pressure 64 mm[Hg] Sera Pendlebury SONAR SUBSYSTEM EQUIPMENT OPERATOR.PLUG SAW OPERATOR Work Phone: [facility] 02-16-2024 14:25-0500 Heart rate 56 /min Sera Pendlebury SONAR SUBSYSTEM EQUIPMENT OPERATOR.PLUG SAW OPERATOR Work Phone: [facility] 02-16-2024 14:25-0500 Respiratory rate 18 /[facility] SONAR SUBSYSTEM EQUIPMENT OPERATOR.PLUG SAW OPERATOR Work Phone: [facility] 02-16-2024 14:25-0500 SaO2% (BldA) [Mass fraction] 99 % Sera Pendlebury SONAR SUBSYSTEM EQUIPMENT OPERATOR.PLUG SAW OPERATOR Work Phone: [facility] 02-16-2024 14:25-0500 Systolic blood pressure 133 mm[Hg] Sera Gallegos APRN.PLUG SAW OPERATOR Work Phone: [facility] Encounters Encounter Date Encounter Type Care Provider Facility Start: 06-09-2024 End: 06-09-2024 Follow-up encounter Kesha Canela APRN.PLUG SAW OPERATOR Work Phone: [facility] Start: 06-08-2024 End: 06-08-2024 ambulatory [facility] Facility:[facility] Start: 06-08-2024 End: 06-08-2024 Patient encounter procedure Neha King FLORES.PLUG SAW OPERATOR Work Phone: [facility] Comment on above: Possible exposure to STD (Primary Dx) Start: 02-17-2024 End: 02-17-2024 Telephone encounter Rosa KEN Work Phone: [facility] Comment on above: Results Start: 02-16-2024 End: 02-16-2024 ambulatory [facility] Facility:[facility] Start: 02-16-2024 End: 02-16-2024 Office outpatient visit 15 minutes Sera Gallegos APRN.PLUG SAW OPERATOR Work Phone: [facility] Comment on above: Possible exposure to STD (Primary Dx) Start: 08-27-2023 End: 08-27-2023 Emergency department patient visit Theron Jaquez Facility:[facility] Start: 05-07-2022 End: 05-07-[address] [facility] Work Phone: Start: 05-07-2022 End: 05-07-20[address] [facility] Procedures Date Procedure Procedure Detail Performing Clinician Start: 02-16-2024 Urnls dip stick/tabl et rgnt auto w/o microscopy [facility] Provider Plan of Treatment Date Care Activity Detail Author Start: 11-22-2025 Urine microalbumin profile DTaP,Tdap,Td Vaccine (5 - Td or Tdap) [facility] Start: 10-27-2023 Covid-19 Vaccine ( season) Covid-19 Vaccine ( season) [facility] Start: 10-27-2023 Influenza vaccination Influenza Vacc ine (#1) [facility] Start: 05-07-2022 Procedure [facility] Start: 01-15-2012 HPV Vaccine (3 - Mal e 3-dose series) HPV Vaccine (3 - Male 3-dose series) [facility] Start: 07-23-2011 Anxiety Screening Anxiety Screening [facility] Start: 07-23-2011 Depression Screening Depression Scre ening [facility] Start: 07-23-2011 Hepatitis C screening Hepatitis C Sc reening [facility] Start: 07-23-2011 HIV screening HIV Screening [facility] Chlamydia trachomatis+Neisseria gonorrhoeae DNA [Presence] in Unspecified specimen by TERESITA with probe detection GONORRHEA/CHLAMYDIA NAAT Lab Routine Possible exposure to STD 02/16/2024 3:06 PM EST [facility] Chlamydia trachomatis+Neisseria gonorrhoeae DNA [Presence] in Unspecified specimen by TERESITA with probe detection GONORRHEA/CHLAMYDIA NAAT Lab Routine Possible exposure to STD Ordered: 06/08/2024 [facility] Work Phone: Comment on above: Ordered: 06/08/2024 TRICHOMONAS VAGINALI S NAAT TRICHOMONAS VAGINALIS NAAT Lab Routine Possible exposure to STD Ordered: 06/08/2024 [facility] Comment on above: Ordered: 06/08/2024 UA DIP OB, URINE (POC) UA DIP OB , URINE (POC) Lab Routine Possible exposure to STD Ordered: 02/16/2024 [facility] Work Phone: Comment on above: Ordered: 02/16/2024 Immunizations Immunization Date Immunization Notes Care Provider Estela carrillo 11-23-2015 influenza virus vaccine, unspecified formulation Sera Gallegos APRN.CNP Work Phone: [facility] 02-10-2013 hepatitis A vaccine, unspecified formulation Sera Gallegos APRN.CNP Work Phone: [facility] 02-10-2013 influenza virus vaccine, unspecified formulation Sera Gallegos APRN.CNP Work Phone: [facility] 09-14-2011 human papilloma viru s vaccine, quadrivalent [facility] SONAR SUBSYSTEM EQUIPMENT OPERATOR.PLUG SAW OPERATOR Work Phone: [facility] 09-14-2011 Meningococcal, MCV4, unspecified conjugate formulation(groups A, C, Y and W-135) [facility] SONAR SUBSYSTEM EQUIPMENT OPERATOR.PLUG SAW OPERATOR Work Phone: [facility] 04-19-2011 hepatitis A vaccine, unspecified formulation [facility] SONAR SUBSYSTEM EQUIPMENT OPERATOR.PLUG SAW OPERATOR Work Phone: [facility] 04-19-2011 human papilloma viru s vaccine, quadrivalent [facility] SONAR SUBSYSTEM EQUIPMENT OPERATOR.PLUG SAW OPERATOR Work Phone: [facility] 11-11-2006 Meningococcal, MCV4, unspecified conjugate formulation(groups A, C, Y and W-135) [facility] SONAR SUBSYSTEM EQUIPMENT OPERATOR.PLUG SAW OPERATOR Work Phone: [facility] 11-11-2006 tetanus toxoid, reduced diphtheria toxoid, and acellular pertussis vaccine, adsorbed [facility] SONAR SUBSYSTEM EQUIPMENT OPERATOR.PLUG SAW OPERATOR Work Phone: [facility] Work Phone: 09-02-1998 diphtheria, tetanus toxoids and acellular pertussis vaccine [facility] SONAR SUBSYSTEM EQUIPMENT OPERATOR.PLUG SAW OPERATOR Work Phone: [facility] 09-02-1998 measles, mumps and rubella virus vaccine [facility] SONAR SUBSYSTEM EQUIPMENT OPERATOR.PLUG SAW OPERATOR Work Phone: [facility] 09-02-1998 trivalent poliovirus vaccine, live, oral [facility] SONAR SUBSYSTEM EQUIPMENT OPERATOR.PLUG SAW OPERATOR Work Phone: [facility] 01-21-1995 diphtheria, tetanus toxoids and acellular pertussis vaccine [facility] SONAR SUBSYSTEM EQUIPMENT OPERATOR.PLUG SAW OPERATOR Work Phone: [facility] 01-21-1995 haemophilus influenz ae type b vaccine, HbOC conjugate [facility] SONAR SUBSYSTEM EQUIPMENT OPERATOR.PLUG SAW OPERATOR Work Phone: [facility] 09-10-1994 measles, mumps and rubella virus vaccine [facility] SONAR SUBSYSTEM EQUIPMENT OPERATOR.PLUG SAW OPERATOR Work Phone: [facility] 01-31-1994 DTP-Haemophilus influenzae type b conjugate vaccine Sera Pendlebury SONAR SUBSYSTEM EQUIPMENT OPERATOR.PLUG SAW OPERATOR Work Phone: [facility] 01-31-1994 hepatitis B vaccine, pediatric or pediatric/adolescent dosage Sera Pendlebury SONAR SUBSYSTEM EQUIPMENT OPERATOR.PLUG SAW OPERATOR Work Phone: [facility] 01-31-1994 trivalent poliovirus vaccine, live, oral Sera Pendlebury SONAR SUBSYSTEM EQUIPMENT OPERATOR.PLUG SAW OPERATOR Work Phone: [facility] 1993 DTP-Haemophilus influenzae type b conjugate vaccine Sera Pendlebury SONAR SUBSYSTEM EQUIPMENT OPERATOR.PLUG SAW OPERATOR Work Phone: [facility] 1993 trivalent poliovirus vaccine, live, oral Sera Pendlebury SONAR SUBSYSTEM EQUIPMENT OPERATOR.PLUG SAW OPERATOR Work Phone: [facility] 1993 DTP-Haemophilus influenzae type b conjugate vaccine Sera Pendlebury SONAR SUBSYSTEM EQUIPMENT OPERATOR.PLUG SAW OPERATOR Work Phone: [facility] Work Phone: 1993 hepatitis B vaccine, pediatric or pediatric/adolescent dosage Sera Pendlebury SONAR SUBSYSTEM EQUIPMENT OPERATOR.PLUG SAW OPERATOR Work Phone: [facility] 1993 trivalent poliovirus vaccine, live, oral Sera Pendlebury SONAR SUBSYSTEM EQUIPMENT OPERATOR.PLUG SAW OPERATOR Work Phone: [facility] 1993 hepatitis B vaccine, pediatric or pediatric/adolescent dosage Sera Pendlebury SONAR SUBSYSTEM EQUIPMENT OPERATOR.PLUG SAW OPERATOR Work Phone: [facility] Payers Date Payer Category Payer Self-pay [id number] 2023 Unknown [id number] 2018 Unknown [employer]MO [employer] PPO [id number] 2018-Present [phone] [address] [place] [address] PPO [id number] 2018 Unknown [id number] Unknown [id number] Social History Date Type Detail Facility Start: 10-19-2014 [facility] if [facility] Start: 1995 Sex Assigned At Male [facility] Start: 02-16-2024 [facility] Never smoked tobacco [facility] Start: 02-16-2024 Tobacco use and exposure Smokeless tobacco non-user [facility] Start: 02-16-2024 Alcoholic beverage intake Current non-drinker of alcohol (finding) [facility] Start: 02-02-2020 End: 02-16-2024 History of Social function [facility] Start: 02-02-2020 End: 02-16-2024 Tobacco use panel [facility] National Score (1-10 0), lower number is lower risk Not on file [facility] Start: 1993 Sex assigned at Not on file [facility] Functional Status Date Assessment Result Facility 01-12-2014 Are you deaf, or do you have serious difficulty hearing No 01/12/2014 3:58 PM Beckie Scott RN No [facility] 01-12-2014 Are you blind, or do you have serious difficulty seeing, even when wearing glasses No 01/12/2014 3:58 PM Beckie Scott RN No [facility] 01-12-2014 Do you have serious difficulty walking or climbing stairs No 01/12/2014 3:58 PM Beckie Scott RN No [facility] 01-12-2014 Do you have difficul ty dressing or bathing No 01/12/2014 3:58 PM Beckie Scott RN No [facility] 01-12-2014 Because of a physica l, mental, or emotional condition, do you have difficulty doing errands alone such as visiting a physician's office or shopping No 01/12/2014 3:58 PM Beckie Scott RN No [facility] Mental Status Date Assessment Result Facility 01-12-2014 Because of a physica l, mental, or emotional condition, do you have serious difficulty concentrating, remembering, or making decisions Yes 01/12/2014 3:58 PM Beckie Scott RN Yes [facility] Clinical Notes 02-16-2024 to 06-09-2024 Telephone Encounter - Angy Mullen LPN - 06/09/2024 7:57 AM EDTTelephone Encounter - Angy Mullen LPN - 06/09/2024 7:57 AM EDTNeha Proctor APRN.ANASTASIA - 06/08/2024 4:08 PM EDT Note Date & Type Note Facility 06-09-2024 Telephone encount er Note Patient notified.Angy Mullen LPN [facility] 06-09-2024 Miscellaneous Notes Formattin g of this note might be different from the original. Patient notified.Angy Mullen LPN Negative for trichomonas, chlamydia, gonorrhea. Please call and notify thank you documented in this encounter [facility] 06-09-2024 Telephone encount er Note Negative for trichomonas, chlamydia, gonorrhea. Please call and notify thank you [facility] Work Phone: 06-08-2024 Note HNO ID: [id number] Author: NEHA PROCTOR APRN.ANASTASIA Service: ? Author Type: Nurse Practitioner Type: Progress Notes Filed: 06/08/2024 16:38 Note Text: [facility] Subjective HPI HPI Ivan Oviedo is a 28 year old male who presents today for CC of possible std exposure 2 weeks ago. Denies any symptoms today. 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 (Patient not taking: Reported on 02/16/2024) FAMILY HISTORY Problem Relation Age of Onset None Father None Mother Diabetes Paternal Grandfather None Paternal Grandmother Cancer Maternal Grandfather ESOPHAGEAL other (CIRRHOSIS OF LIVER [Other]) Maternal Grandfather Heart Maternal Grandmother Social History Tobacco Use Smoking status: Never Smokeless tobacco: Never Substance Use Topics Alcohol use: No Drug use: No Review of Systems Constitutional: Negative for fever. Cardiovascular: Negative for chest pain. Gastrointestinal: Negative for abdominal pain, constipation, diarrhea, nausea and vomiting. Genitourinary: Negative for dysuria, flank pain, frequency and urgency. Musculoskeletal: Negative for back pain. Objective BP 122/80 Pulse 88 Temp 36.9 ?C (98.4 ?F) Resp 16 Wt 92.4 kg (203 lb 11.3 oz) SpO2 97% Physical Exam Constitutional: General: He is not in acute distress. Appearance: He is not ill-appearing, toxic-appearing or diaphoretic. HENT: Head: Normocephalic and atraumatic. Right Ear: Hearing, tympanic membrane, ear canal and external ear normal. Left Ear: Hearing, tympanic membrane, ear canal and external ear normal. Nose: Nose normal. Mouth/Throat: Pharynx: Uvula midline. Eyes: General: Lids are normal. No scleral icterus. Right eye: No discharge. Left eye: No discharge. Conjunctiva/sclera: Conjunctivae normal. Pupils: Pupils are equal, round, and reactive to light. Neck: Trachea: Trachea normal. Cardiovascular: Rate and Rhythm: Normal rate and regular rhythm. Heart sounds: Normal heart sounds. Pulmonary: Effort: Pulmonary effort is normal. Breath sounds: Normal breath sounds. Musculoskeletal: Cervical back: Normal range of motion and neck supple. Lymphadenopathy: Cervical: No cervical adenopathy. Skin: Findings: No rash. Neurological: Mental Status: He is alert and oriented to person, place, and time. {ASSESSMENT/PLAN: 1. Possible exposure to STD - ICD9: V01.6, ICD10: Z20.2 No treatment today Call and treat per results - GONORRHEA/CHLAMYDIA NAAT - TRICHOMONAS VAGINALIS NAAT Neha Proctor APRN.PLUG SAW OPERATOR History and Record Review External record(s) reviewed: prior outpatient record. Disposition The patient was discharged. Procedures [facility] 06-08-2024 History of Presen t illness Narrative [facility] Subjective HPI HPI Ivan Oviedo is a 28 year old male who presents today for CC of possible std exposure 2 weeks ago. Denies any symptoms today. 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 (Patient not taking: Reported on 02/16/2024) FAMILY HISTORY Problem Relation Age of Onset None Father None Mother Diabetes Paternal Grandfather None Paternal Grandmother Cancer Maternal Grandfather ESOPHAGEAL other (CIRRHOSIS OF LIVER [Other]) Maternal Grandfather Heart Maternal Grandmother Social History Tobacco Use Smoking status: Never Smokeless tobacco: Never Substance Use Topics Alcohol use: No Drug use: No Review of Systems Constitutional: Negative for fever. Cardiovascular: Negative for chest pain. Gastrointestinal: Negative for abdominal pain, constipation, diarrhea, nausea and vomiting. Genitourinary: Negative for dysuria, flank pain, frequency and urgency. Musculoskeletal: Negative for back pain. Objective BP 122/80 Pulse 88 Temp 36.9 C (98.4 F) Resp 16 Wt 92.4 kg (203 lb 11.3 oz) SpO2 97% Physical Exam Constitutional: General: He is not in acute distress. Appearance: He is not ill-appearing, toxic-appearing or diaphoretic. HENT: Head: Normocephalic and atraumatic. Right Ear: Hearing, tympanic membrane, ear canal and external ear normal. Left Ear: Hearing, tympanic membrane, ear canal and external ear normal. Nose: Nose normal. Mouth/Throat: Pharynx: Uvula midline. Eyes: General: Lids are normal. No scleral icterus. Right eye: No discharge. Left eye: No discharge. Conjunctiva/sclera: Conjunctivae normal. Pupils: Pupils are equal, round, and reactive to light. Neck: Trachea: Trachea normal. Cardiovascular: Rate and Rhythm: Normal rate and regular rhythm. Heart sounds: Normal heart sounds. Pulmonary: Effort: Pulmonary effort is normal. Breath sounds: Normal breath sounds. Musculoskeletal: Cervical back: Normal range of motion and neck supple. Lymphadenopathy: Cervical: No cervical adenopathy. Skin: Findings: No rash. Neurological: Mental Status: He is alert and oriented to person, place, and time. {ASSESSMENT/PLAN: 1. Possible exposure to STD - ICD9: V01.6, ICD10: Z20.2 No treatment today Call and treat per results - GONORRHEA/CHLAMYDIA NAAT - TRICHOMONAS VAGINALIS NAAT Neha Proctor APRN.PLUG SAW OPERATOR History and Record Review External record(s) reviewed: prior outpatient record. Disposition The patient was discharged. Procedures documented in this encounter [facility] 02-17-2024 Telephone encount er Note Patient notified of results, verbalizes understanding of instructions. Eloisa Leal MA [facility] 02-17-2024 Miscellaneous Notes Formattin g of this note might be different from the original. Patient notified of results, verbalizes understanding of instructions. Eloisa Leal MA Negative for chlamydia and gonorrhea documented in this encounter [facility] 02-17-2024 Telephone encount er Note Negative for chlamydia and gonorrhea [facility] Work Phone: 02-16-2024 Note HNO ID: [id number] Author: SERA GALLEGOS APRN.PLUG SAW OPERATOR Service: ? Author Type: Nurse Practitioner Type: Progress Notes Filed: 02/16/2024 15:08 Note Text: Subjective HPI Nontoxic-appearing male presents urgent care chief complaint possible STD exposure. States was possibly exposed to gonorrhea. History of syphilis. Previously treated. Denies any other history of STDs. States he is sexually active. Does not always use protection. States that his male partner. States did not receive anal intercourse. States did perform oral intercourse. Denies any pharyngitis. denies any testicular pain penile drainage scrotal swelling dysuria frequency urgency fever nausea vomiting abdominal pain. Past medical history prescription medications allergies reviewed. 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 (Patient not taking: Reported on 02/16/2024) FAMILY HISTORY Problem Relation Age of Onset None Father None Mother Diabetes Paternal Grandfather None Paternal Grandmother Cancer Maternal Grandfather ESOPHAGEAL other (CIRRHOSIS OF LIVER [Other]) Maternal Grandfather Heart Maternal Grandmother Social History Tobacco Use Smoking status: Never Smokeless tobacco: Never Substance Use Topics Alcohol use: No Drug use: No Review of Systems Constitutional: Negative for chills, fever and malaise/fatigue. HENT: Negative for sore throat. Cardiovascular: Negative for chest pain. Gastrointestinal: Negative for abdominal pain, constipation, diarrhea, nausea and vomiting. Genitourinary: Negative for dysuria, flank pain, frequency, hematuria and urgency. Musculoskeletal: Negative for myalgias. Objective Physical Exam Vitals and nursing note reviewed. Constitutional: General: He is not in acute distress. Appearance: He is not diaphoretic. HENT: Head: Jaw: No trismus. Right Ear: Hearing normal. No decreased hearing noted. No drainage, swelling or tenderness. Tympanic membrane is not perforated, erythematous or bulging. Left Ear: Hearing normal. No decreased hearing noted. No drainage, swelling or tenderness. Tympanic membrane is not perforated, erythematous or bulging. Mouth/Throat: Pharynx: Uvula midline. No uvula swelling. Tonsils: No tonsillar abscesses. Cardiovascular: Rate and Rhythm: Normal rate and regular rhythm. Pulses: Normal pulses. Pulmonary: Effort: Pulmonary effort is normal. No respiratory distress. Breath sounds: Normal breath sounds. Chest: Chest wall: No tenderness. Abdominal: General: Bowel sounds are normal. There is no distension. Palpations: Abdomen is soft. Abdomen is not rigid. Tenderness: There is no abdominal tenderness. There is no right CVA tenderness, left CVA tenderness, guarding or rebound. Negative signs include Ley's sign and McBurney's sign. Genitourinary: Comments: Deferred exam Musculoskeletal: General: No tenderness. Lymphadenopathy: Head: Right side of head: No submental, submandibular, tonsillar, preauricular, posterior auricular or occipital adenopathy. Left side of head: No submental, submandibular, tonsillar, preauricular, posterior auricular or occipital adenopathy. Cervical: Right cervical: No superficial or posterior cervical adenopathy. Left cervical: No superficial or posterior cervical adenopathy. Skin: General: Skin is warm and dry. Findings: No rash. Neurological: Mental Status: He is alert and oriented to person, place, and time. ASSESSMENT/PLAN: 1. Possible exposure to STD - ICD9: V01.6, ICD10: Z20.2 - GONORRHEA/CHLAMYDIA NAAT Urine dip POC negative. Diagnosed with possible STD exposure. Will obtain gonorrhea chlamydia via urine test. Treat accordingly test results. Patient was educated on supportive therapies. Patient will follow up with primary care provider as needed. Patient was instructed to immediately proceed to emergency room for any new, worsening, or symptoms lasting longer than anticipated. The patient's clinical presentation is otherwise unremarkable at this time. Based on exam and clinical finding, the patient is stable for discharge. Plan of care was discussed with patient. Patient verbalizes understanding and agrees to plan of care. This note was generated using Madefire software. It may contain er (more content not included)... [facility] 02-16-2024 History of Presen t illness Narrative Subjective HPI Nontoxic-appearing male presents urgent care chief complaint possible STD exposure. States was possibly exposed to gonorrhea. History of syphilis. Previously treated. Denies any other history of STDs. States he is sexually active. Does not always use protection. States that his male partner. States did not receive anal intercourse. States did perform oral intercourse. Denies any pharyngitis. denies any testicular pain penile drainage scrotal swelling dysuria frequency urgency fever nausea vomiting abdominal pain. Past medical history prescription medications allergies reviewed. 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 (Patient not taking: Reported on 02/16/2024) FAMILY HISTORY Problem Relation Age of Onset None Father None Mother Diabetes Paternal Grandfather None Paternal Grandmother Cancer Maternal Grandfather ESOPHAGEAL other (CIRRHOSIS OF LIVER [Other]) Maternal Grandfather Heart Maternal Grandmother Social History Tobacco Use Smoking status: Never Smokeless tobacco: Never Substance Use Topics Alcohol use: No Drug use: No Review of Systems Constitutional: Negative for chills, fever and malaise/fatigue. HENT: Negative for sore throat. Cardiovascular: Negative for chest pain. Gastrointestinal: Negative for abdominal pain, constipation, diarrhea, nausea and vomiting. Genitourinary: Negative for dysuria, flank pain, frequency, hematuria and urgency. Musculoskeletal: Negative for myalgias. Objective Physical Exam Vitals and nursing note reviewed. Constitutional: General: He is not in acute distress. Appearance: He is not diaphoretic. HENT: Head: Jaw: No trismus. Right Ear: Hearing normal. No decreased hearing noted. No drainage, swelling or tenderness. Tympanic membrane is not perforated, erythematous or bulging. Left Ear: Hearing normal. No decreased hearing noted. No drainage, swelling or tenderness. Tympanic membrane is not perforated, erythematous or bulging. Mouth/Throat: Pharynx: Uvula midline. No uvula swelling. Tonsils: No tonsillar abscesses. Cardiovascular: Rate and Rhythm: Normal rate and regular rhythm. Pulses: Normal pulses. Pulmonary: Effort: Pulmonary effort is normal. No respiratory distress. Breath sounds: Normal breath sounds. Chest: Chest wall: No tenderness. Abdominal: General: Bowel sounds are normal. There is no distension. Palpations: Abdomen is soft. Abdomen is not rigid. Tenderness: There is no abdominal tenderness. There is no right CVA tenderness, left CVA tenderness, guarding or rebound. Negative signs include Ley's sign and McBurney's sign. Genitourinary: Comments: Deferred exam Musculoskeletal: General: No tenderness. Lymphadenopathy: Head: Right side of head: No submental, submandibular, tonsillar, preauricular, posterior auricular or occipital adenopathy. Left side of head: No submental, submandibular, tonsillar, preauricular, posterior auricular or occipital adenopathy. Cervical: Right cervical: No superficial or posterior cervical adenopathy. Left cervical: No superficial or posterior cervical adenopathy. Skin: General: Skin is warm and dry. Findings: No rash. Neurological: Mental Status: He is alert and oriented to person, place, and time. ASSESSMENT/PLAN: 1. Possible exposure to STD - ICD9: V01.6, ICD10: Z20.2 - GONORRHEA/CHLAMYDIA NAAT Urine dip POC negative. Diagnosed with possible STD exposure. Will obtain gonorrhea chlamydia via urine test. Treat accordingly test results. Patient was educated on supportive therapies. Patient will follow up with primary care provider as needed. Patient was instructed to immediately proceed to emergency room for any new, worsening, or symptoms lasting longer than anticipated. The patient's clinical presentation is otherwise unremarkable at this time. Based on exam and clinical finding, the patient is stable for discharge. Plan of care was discussed with patient. Patient verbalizes understanding and agrees to plan of care. This note was generated using Madefire software. It may contain errors in wording, punctuation, or spelling. Sera Gallegos [email or web address].[email or web address] documented in this encounter [facility] Evaluation note No assessment inform ation available [facility] Work Phone: Evaluation note Diagnosis Possible exposure to STD- Primary Other specified personal history presenting hazards to health [facility] Possible exposure to STD- Primary Other specified personal history presenting hazards to health documented in this encounter [facility] Advance Directives No Advanced Directives Records Found Advance Directive Response Recorded Date/ Time Advance Directives No June 30, 2013 8:46am Living Will No October 19, 201 5 3:17am Power of Logistics Solution Manager No October 19, 2 015 3:17am Summary Purpose Family History No Family History Records FoundNo Family History Records Found Additional Source Comments Care Teams (unrecognized sec tion and content) Team Status: Active Member Role Status Dates Dr. Dion Shine MD Family Provider Active Dr. Dion Shine MD Primary Care Provider Activ e Team Status: Inactive Member Role Status Dates Dr. Dion Shine MD Primary Care Provider, Atte nding Provider Active Mobile Application Architect Relationship Specialty Start Date End Date Dorian Shine MD [address] [place], [place] [id number] PCP - General Family Medicine 07/24/17 Mobile Application Architect Relationship Specialty Start Date End Date Dorian Shine MD [address] [place], [place] [id number] PCP - General Family Medicine 07/24/17 Mobile Application Architect Relationship Specialty Start Date End Date Dorian Shine MD [address] [place] [address] PCP - General Family Medicine 07/24/17 Mobile Application Architect Relationship Specialty Start Date End Date Dorian Shine MD [address] [place] [address] PCP - General Family Medicine 07/24/17 Goals (unrecognized section and content) Goals may be documented in a n alternate section (unrecognized sect ion and content) No Status Records FoundNo Status Records Found INFORMATION SOURCE (unrecogn ized section and content) DATE CREATED AUTHOR 09/11/2023 [facility] DATE CREATED AUTHOR AUTHOR'S ORGANIZ ATION 06/09/2024 [facility] Source Comments (unrecognize d section and content) In the event this informatio n is protected by the Federal Confidentiality of Alcohol and Drug Abuse Patient Records regulations: The Federal rules restrict any use of the information to criminally investigate or prosecute any alcohol or drug abuse patient.[facility] the event this information is protected by the Federal Confidentiality of Alcohol and Drug Abuse Patient Records regulations: The Federal rules restrict any use of the information to criminally investigate or prosecute any alcohol or drug abuse patient.[facility] the event this information is protected by the Federal Confidentiality of Alcohol and Drug Abuse Patient Records regulations: The Federal rules restrict any use of the information to criminally investigate or prosecute any alcohol or drug abuse patient.[facility] the event this information is protected by the Federal Confidentiality of Alcohol and Drug Abuse Patient Records regulations: The Federal rules restrict any use of the information to criminally investigate or prosecute any alcohol or drug abuse patient.[facility] Reason for Visit (unrecogniz ed section and content) Reason Comments STD Gonorrhea exposure p ossible Reason Comments Results Reason Comments Std Exposure FOR RECORDS PERTAINING TO PATIENTS WHO ARE OR HAVE BEEN ENROLLED IN A CHEMICAL DEPENDENCY/SUBSTANCEABUSE PROGRAM, SOME INFORMATION MAY BE OMITTED. This clinical summary was aggregated from multiple sources. Caution should be exercised in using it in the provision of clinical care. This summary normalizes information from multiple sources, and as a consequence, information in this document may materially change the coding, format and clinical context of patient data. In addition, data may be omitted in some cases. CLINICAL DECISIONS SHOULD BE BASED ON THE PRIMARY CLINICAL RECORDS. [facility]. provides no warranty or guarantee of the accuracy or completeness of information in this document.
[2024-07-31 05:07] LABS: HSV 1 IgG Non Reactive (Non Reactive); HSV 2 IgG Non Reactive (Non Reactive)
== END 2024-07-29 23:59 | disposition home or self-care (01) ==
LOC: MTRAD 16:12 → MTLAB 16:18
PROVIDERS: PCP Family Medicine; Referring Provider Family Medicine; Visit Provider Family Medicine
DX: M25.511 Pain in right shoulder (principal)
CPT/HCPCS: 36415; 73030; 86695; 86696; 86703; 86780; 87491; 87591

== ENCOUNTER → 2024-10-21 | Outpatient (CLI) | payer OTHER, SELFPAY ==
[2024-10-21 19:17] LABS: Syphilis Antibodies Reactive (Nonreactive)
== END | disposition home or self-care (01) ==
PROVIDERS: PCP Family Medicine
DX: Z11.3 Encounter for screening for infections with a predominantly sexual mode of transmission (principal)
CPT/HCPCS: 36415; 86695; 86696; 86780

== ENCOUNTER → 2024-10-21 | Outpatient (CLI) | payer OTHER, SELFPAY ==
--- OUTSIDE RECORDS SUMMARY | 2024-10-21 19:54 | XMS RPT_ITS | CCD ---
Author Organization [facility] Care Team Providers Care Anesthesia Attending Name Role Phone Dorian Shine MD Primary Care Provider Rl GOMEZ, Dr. Alarcon Primary Care Provider Rl GOMEZ, Dr. Alarcon Attending Provider Rl GOMEZ, Dr. Alarcon Referring Provider Dorian Shine Referring Unavailable Dorian Shine Attending Unavailable Dorian Shine Primary Care Unavailable Theron Jaquez Attending Unavailable Dorian Shine Primary Care Unavailable PHYSICIAN, NONE Primary Care Unavailable RL GOMEZ, DR ALARCON Attending DORIAN Eli Primary Care UnavailDORIAN Bush Primary Care UnavailDORIAN Bush Primary Care Unavailguero rodriguez Allergies Allergy Classification Reported Allergen(s) Allergy Type Date of Onset Reaction(s) Facility (5 sources) Acetaminophen / HYDROcodone; Translations: [HYDROCODONE-ACETA MINOPHEN] Drug Allergy 02-16-2024 GI Upset [facility] Medications Current Medications Medication Drug Class(es) Dates Sig (Normalized) Sig (Original) ciprofloxacin 2 mg/ml / hydrocortisone 10 mg/ml otic suspension (4 sources) Corticosteroid, Quinolone Antimicrobial Start: 07-24-2017 ciprofloxacin-hydroc ortisone (CIPRO HC) otic suspension Indications: Acute swimmer's ear of right side Use 3 Drops in the right ear twice daily. 1 Bottle 07/24/2017 Active diphenhydrAMINE hydrochloride 25 mg oral capsule (2 sources) Histamine-1 Receptor Antagonist Start: 10-19-2014 take 1 capsule by mouth three times daily as needed Diphenhydramine Hcl (Benadryl) 25 MG capsule Active 25 mg PO 3 TIMES DAILY NEEDED as needed for Itching October 19, 2014 12:00am ibuprofen 400 mg oral tablet (1 source) Nonsteroidal Anti-inflammatory Drug Start: 08-27-2023 take 1 tablet by mouth every eight hours Ibuprofen (Ibu) 400 mg tablet Active 400 mg PO Q8H August 27, 2023 12:00am Completed/Discontinued Medications Medication Drug Class(es) Dates Sig (Normalized) Sig (Original) Creatine (2 sources) Start: 06-10-2013 End: 08-27-2023 Creatine Monohydrate (Bulk) 5,000 GM powder Discontinued 5000 g MC DAILY June 10, 2013 12:00am August 27, 2023 8:22pm Start: 06-10-2013 Creatine Monoh ydrate (Bulk) Active 5000 GM MC DAILY June 10, 2013 12:00am Problems Active Problems Problem Classification Problem Date Documented Date Episodic/Chronic Immunizations and screening for infectious disease (2 sources) At risk of sexually transmitted infection ; Translations: [Contact with and (suspected) exposure to infections with a predominantly sexual mode of transmission] 02-16-2024 Episodic Intracranial injury (1 source) Concussion injury of body structure; Translations: [Concussion] 09-04-2023 Episodic Other injuries and conditions due to external causes (1 source) Injury of head; Translations: [Unspecified injury of head, initial encounter] 09-04-2023 Episodic Other non-traumatic joint disorders (1 source) Pain in right shoulder; Translations: [Pain in right shoulder] Onset: 08-04-2024 Episodic Past or Other Problems Problem Classification Problem Date Documented Da te Episodic/Chronic Other injuries and conditions due to external causes (4 sources) Injury of sciatic nerve; Translations: [Injury of sciatic nerve at hip and thigh level, unspecified leg, initial encounter] Onset: 05-29-2007 02-10-2013 Episodic Residual codes; unclassified (1 source) Illness, unspecified; Translations: [Illness, unspecified] Onset: 09-05-2023 Episodic Results Test Name Value Interpretation Reference Range Facility HSV 1 AND 2 IgGon 07-31-2024 HSV 1 IgG Non-Reactive Normal Non Reactive [facility] Comment on above: Order Comment: Order Date: 07/29/24 Order Info: [id number] - HSNUAC Result Comment: Pl ease note reference interval change HSV-1 IgG testing performed using the [employer] HSV-1 IgG assay. Performed By: #### L 3890.6006, L3400.1610, M8200.2203, L509.8002 #### [facility] [address] [place], [place], [id number] HSV 2 IgG Non-Reactive Normal Non Reactive [facility] Comment on above: Order Comment: Order Date: 07/29/24 Order Info: [id number] - HSNUAC Result Comment: Pl ease note reference interval change Current guidelines and recommendations do not recommend routine screening for HSV-2 in asymptomatic individuals, including those that are . The detection of HSV-2 IgG antibodies in a single sample indicates previous exposure to HSV-2 but does not give information as to the site of HSV infection or the timing of exposure. The predictive value of positive and negative results depends on the population's prevalence and the pretest likelihood of HSV-2. HSV-2 IgG testing performed using the [employer] Elecsys HSV-2 IgG assay. Performed at: [place] [id number] Solo Musician: Manpreet Cummins PhD, Phone: [phone] Performed By: #### L 3890.6006, L3400.1610, M8200.2203, L509.8002 #### [facility] [address] [place], [place], [id number] HIVon 07-29-2024 HIV Non-Reactive Normal Nonreactive [facility] Comment on above: Result Comment: Non- Reactive Reactive Repeatedly reactive samples must be confirmed according to CDC recommended confirmatory algorithms. The subresults for either HIVAG or AHIV can be used as an aid in the selection of the confirmation algorithm for reactive samples. Send out specimens with Reactive results to [facility] for confirmation. Order the HIV antibody detection and differentiation: lc#[id number] Performed By: #### L 3890.6006, L3400.1610, M8200.2203, L509.8002 #### [facility] [address] [place], [place], [id number] M8200.2203on 07-29-2024 M8200.2203 Pending Chlamydia Trachomatis PCR NEGATIVE for Chlamydia trachomatis N. gonorrhoeae PCR Negative for N. gonorrhoeae Normal [facility] Comment on above: Performed By: #### L 3890.6006, L3400.1610, M8200.2203, L509.8002 #### [facility] [address] [place], [place], [address] No Panel InformationOrdered By: Dorian Shine on 07-29-2024 HIV (1&2) Antibody Non-Reactive Nonreactive [facility] Comment on above: Non-ReactiveReactive Repeatedly reactive samples must be confirmed according to CDC recommended confirmatory algorithms. The subresults for either HIVAG or AHIV can be used as an aid in the selection of the confirmation algorithm for reactive samples.[facility].Order the HIV antibody detection and differentiation: #[id number] Serum herpes simplex virus 2 antibody assay by immunoassay (units/volume)Ordered By: Dorian Shine on 07-29-2024 HSV 2 Ab IA Qn (S) Non-Reactive Non Reactive [facility] Comment on above: Please note refere nce interval changeCurrent guidelines and recommendations do not recommendroutine screening for HSV-2 in asymptomatic individuals,including those that are . The detection of HSV-2IgG antibodies in a single sample indicates previousexposure to HSV-2 but does not give information as to thesite of HSV infection or the timing of exposure. Thepredictive value of positive and negative results dependson the population's prevalence and the pretest likelihoodof HSV-2. HSV-2 IgG testing performed using the [employer] HSV-2 IgG assay.Performed at: [address] [id number] Director: Manpreet Cummins PhD, Phone: [phone] Shoulder min 2 Viewson 07-29 Shoulder min 2 Views [facility] Imaging Services [address] [place], [place] [address] Shoulder min 2 Views MR#: [id number] Acct: [id number] Name: IVAN OVIEDO Rep #: [id number] : 1995 M 29 From: Mariel Florez PCP: Dr. Dorian Shine MD Status: REG CLI Study: Shoulder min 2 Views Date of Exam: 07/29/24 Exam# [id number] Ordering Dr: Dorian Shine PROCEDURE: SHOULDER MIN 2 VIEWS 07/29/2024 REASON FOR EXAM: PAIN RT SHOUDER TECHNIQUE: Four views of the right shoulder COMPARISON: None RAD/Shoulder min 2 Views IMPRESSION: No acute fracture or dislocations. No acute soft tissue abnormalities. No radiographic foreign body. Reading Location: [id number] CC: Dr. Dorian Shine MD Rn Cardiovascular Icu: Signed Normal [facility] Syphilis Antibodieson 2024 Syphilis Abs Reactive Abnormal Nonreactive [facility] Comment on above: Performed By: #### L 3890.6006, L3400.1610, M8200.2203, L509.8002 #### [facility] [address] [facility] [place], [address] C. trachomatis+N. gonorrhoea e DNA TERESITA+probe Ql (Unsp spec)on 06-08-2024 C. trachomatis rRNA TERESITA+probe Ql (Unsp spec) Not detected Normal Not detected [facility] Comment on above: Order Comment: Speci men Type: URINE SPECIMEN Ordering Facility: [facility] Address: [address] [place] [address] Performed By: #### T RVAMP, 45877-6 #### [facility] CLIA [id number] [address] [place] [address] [place] N. gonorrhoeae rRNA TERESITA+probe Ql (Unsp spec) Not detected Normal Not detected [facility] Comment on above: Order Comment: Speci men Type: URINE SPECIMEN Ordering Facility: [facility] Address: [address] [place] [address] Performed By: #### T RVAMP, 42401-5 #### [facility] CLIA [id number] [address] [place] [address] [place] CNOVon 06-08-2024 CNOV Office Visit (UCWSTR) IVAN OVIEDO ([id number]) 1995 M Date Time Provider Department 06/08/24 4:00 PM NEHA PROCTOR [facility] During your visit today, we recorded the following information about you: Temperature Pulse Respiration Blood pressure 98.4 degrees 88/minute 16/minute 122/80 Weight 92.4 kg Neha Proctor APRN.INTENSIVE CARE MEDICINE SPECIALIST 06/08/2024 4:38 PM Signed [facility] Subjective HPI HPI Ivan Oviedo [...] 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 Disposition The patient was discharged. Procedures Allergies As of Date: 06/08/2024 Noted Allergy Reaction VICODIN (HYDROCODONE-ACETAMI NOPHE*02/16/2024 8 - GI Upset Comments: Nausea Date Reviewed: 06/08/2024 Reviewed by: Ayde Hurtado MA - Fully Assessed Reason for Visit: Std Exposure [275] Primary Visit Diagnosis:Possible exposure to STD [Z20.2] Order(s):GONORRHEA/C HLAMYDIA NAAT [SQGCCT] Order #: [id number]. #:[id number] TRICHOMONAS VAGINALIS NAAT [SQTRVAMP] Order #: [id number]. #:[id number] Prescriptions as of 06/08/2024 - ciprofloxacin-hydroc ortisone (CIPRO HC) otic suspension Use 3 Drops in the right ear twice daily. Problem List As Of Date 06/08/2024 Noted Resolved Injury to sciatic nerve [S74.00XA] 05/29/2007 Encounter Status:Closed by NEHA PRCOTOR on 06/08/24 Normal [facility] TRICHOMONAS VAGINALIS NAATon 06-08-2024 T. vaginalis DNA TERESITA+probe Ql (Unsp spec) Not detected Normal Not detected [facility] Comment on above: Order Comment: Speci men Type: URINE SPECIMEN Ordering Facility: [facility] Address: [address] [place] [address] Performed By: #### T RVAMP, 65179-4 #### [facility] CLIA [id number] [address] [place] [address] [place] [facility] CNPLuz Maria 02-17-2024 CNPN Telephone (UCTR) IVAN OVIEDO ([id number]) 1995 M Date Time Provider Department 02/17/24 ROSA PRADO [facility] During your visit today, we recorded the following information about you: Rosa Prado PA 02/17/2024 8:36 AM Signed Negative for chlamydia and gonorrhea Eloisa Leal MA 02/17/2024 9:12 AM Signed Patient notified of results, verbalizes understanding of instructions. Eloisa Leal MA Allergies As of Date: 02/17/2024 Noted Allergy Reaction VICODIN (HYDROCODONE-ACETAMI NOPHE*02/16/2024 8 - GI Upset Comments: Nausea Date Reviewed: 02/16/2024 Reviewed by: Sera Gallegos APRN.INTENSIVE CARE MEDICINE SPECIALIST - Fully Assessed Reason for Visit: Results [95] Prescriptions as of 02/17/2024 - ciprofloxacin-hydroc ortisone (CIPRO HC) otic suspension Use 3 Drops in the right ear twice daily. Problem List As Of Date 02/17/2024 Noted Resolved Injury to sciatic nerve [S74.00XA] 05/29/2007 Encounter Status:Closed by ELOISA LEAL on 02/17/24 Normal [facility] C. trachomatis+N. gonorrhoea e DNA TERESITA+probe Ql (Unsp spec)on 02-16-2024 C. trachomatis rRNA TERESITA+probe Ql (Unsp spec) Not detected Normal Not detected [facility] Comment on above: Order Comment: Speci men Type: URINE SPECIMEN Ordering Facility: [facility] Address: [address] [place] [address] Performed By: #### 3 6902-5 #### [facility] CLIA [id number] [address] [place] [address] [place] N. gonorrhoeae rRNA TERESITA+probe Ql (Unsp spec) Not detected Normal Not detected [facility] Comment on above: Order Comment: Speci men Type: URINE SPECIMEN Ordering Facility: [facility] Address: [address] [place] [address] Performed By: #### 3 6902-5 #### [facility] CLIA [id number] [address] [place] [address] [place] CNOVon 02-16-2024 CNOV Office Visit (UCWSTR) IVAN [id number]) 1995 M Date Time Provider Department 02/16/24 2:15 PM SERA GALLEGOS [facility] During your visit today, we recorded the following information about you: Temperature Pulse Respiration Blood pressure 97.2 degrees 56/minute 18/minute 133/64 Weight 89.9 kg Sera Gallegos APRN.INTENSIVE CARE MEDICINE SPECIALIST 02/16/2024 3:08 PM Signed Subjective HPI Nontoxic-appearing [...] 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 Normal [facility] UA DIP, URINE (POC)on 2023 BILIRUBIN UA (POCT) Negative Negative [facility] CLARITY UA (POCT) Clear [facility] COLOR UA (POCT) Yellow [facility] GLUCOSE UA (POCT) Negative Negative mg/dL [facility] Hemoglobin Ql (U) Negative Negative [facility] KETONE UA (POCT) Negative Negative mg/dL [facility] LEUKOCYTES UA (POCT) Negative Negative [facility] NITRITE UA (POCT) Negative Negative [facility] PH UA (POCT) 7.0 4.5 - 8.0 [facility] Protein Ql (U) Negative Negative mg/dL [facility] SPECIFIC GRAVITY UA (POCT) 1.020 1.005 - 1.030 [facility] UROBILINOGEN UA (POCT) 1.0 Normal E.U./d L [facility] Location:[address], [id number] [place] [address] POINT OF CARE [facility] Brain/Head without Contrasto n 08-27-2023 Brain/Head without Contrast [facility] Imaging Services [address] [place] [address] Brain/Head without Contrast MR#: [id number] Acct: [id number] Name: IVAN OVIEDO Rep #: [id number] : 1995 M 28 From: Gentry Monique MD PCP: Dr. Dorian Shine MD Status: REG ER Study: Brain/Head without Contrast Date of Exam: 04/20 Exam# [id number] Ordering Dr: Theron Jaquez MD [id number] STUDY: CT BRAIN WITHOUT CONTRAST REASON FOR [...] Dorian Shine MD; Dr. Theron Jaquez MD Rn Cardiovascular Icu: Signed Normal [facility] Emergency Department Summary on 08-27-2023 Emergency Department Summary [facility] Medical Records Department [address] [place] [address] Emergency Department Summary 08/27/23 MR#: [id number] Acct: [id number] Name: IVAN OVIEDO Rep #: [id number] : 1995 28 From: Theron Jaquez MD PCP: Dr. Dorian Shine MD Status:DEP ER Location: ED HPI History of Present Illness Chief Complaint: General Illness Informant: patient Onset/Context/Timing Onset: Days Context: Gradual Onset Timing: Continuous [...] head injury. Prior similar symptoms: No Recent Illness/Hospitalizat ion: No PFSH PFS Medical History no medical [...] or depression Endocrine Endocrinology: Denies cold intolerance Hematologic/Lymphati c Hematologic/Lymphati c: Reports none Allergic/Immunologic Allergic/Immunologic ED: Denies mouth swelling, tongue swelling or [...] Moving all 4 extremities. 5 of 5 rail setter strength. Dorsi plantarflexion intact. No edema. Neurologically [...] Negative fo (more content not included)... Normal [facility] Basophil percentageOrdered B y: Dr. Shine on 05-07-2022 C. trachomatis DNA TERESITA+probe Ql (Unsp spec) Negative Negative [facility] Bilirubin [Mass/Vol] 1.20 mg/dL 0.20-1.00 [facility] Comment on above: For patients on eltr ombopag therapy, use of Dimension [place] TBIL is not recommended. Chloride [Moles/Vol] 104 mmol/L 98-107 [facility] Glucose [Mass/Vol] 90 mg/dL 74-106 [facility] Potassium [Moles/Vol] 3.7 mmol/L 3.5-5.1 [facility] Protein [Mass/Vol] 7.1 g/dL 6.4-8.2 [facility] Sodium [Moles/Vol] 139 mmol/L 136-145 [facility] Bilirubin Test strip Ql (U)O rdered By: Dr. Shine on 05-07-2022 Bilirubin Ql (U) Negative Negative [facility] HIV 1 and HIV-2 antibody ass ay with HIV-1 p24 antigen detectionOrdered By: Dr. Shine on 05-07-2022 HIV 1+2 Ab+HIV1 p24 Ag IA Ql Non-Reactive Nonreactive [facility] Ketones Test strip Ql (U)Ord ered By: Dr. Shine on 05-07-2022 Ketones Ql (U) 5 mg/dl Negative [facility] - Chemistry and C hemistry - challengeOrdered By: Dr. Shine on 05-07-2022 ALP [Catalytic activity/Vol] 44 U/L 45-117 [facility] ALT [Catalytic activity/Vol] 46 U/L 16-61 [facility] CO2 [Moles/Vol] 29.0 mmol/L 21.0-32.0 [facility] Globulin (S) [Mass/Vol] 3.3 g/dL 2.2-4.2 [facility] Urea nitrogen/Creatinine [Mass ratio] 8.9 mg/mg 10-20 [facility] Neisseria gonorrhoeae detect ion by PCROrdered By: Dr. Shine on 05-07-2022 N. gonorrhoeae DNA TERESITA+probe Ql (Cervical mucus) Negative Negative [facility] Nitrite Test strip Ql (U)Ord ered By: Dr. Shine on 05-07-2022 Nitrite Ql (U) Negative Negative [facility] No Panel InformationOrdered By: Dr. Shine on 05-07-2022 Estimated GFR (MDRD) Amer 89 mL/min >60 [facility] Comment on above: GFR Calc Estimated GFR (MDRD) Non-Af Amer 73 mL/min >60 [facility] Comment on above: Non- GFR Calc Protein Test strip Ql (U)Ord ered By: Dr. Shine on 05-07-2022 Protein Ql (U) 15 mg/dl Negative [facility] Serum Treponema species anti body detectionOrdered By: Dr. Shine on 05-07-2022 Treponema sp Ab Ql (S) Reactive [facility] Serum or plasma albumin acacia urement (mass/volume)Ordered By: Dr. Shine on 05-07-2022 Albumin [Mass/Vol] 3.8 g/dL 3.2-5.0 [facility] Serum or plasma albumin/glob ulin mass ratioOrdered By: Dr. Shine on 05-07-2022 Albumin/Globulin [Mass ratio] 1.2 {ratio} 0.9-2.4 [facility] Serum or plasma calcium acacia urement (mass/volume)Ordered By: Dr. Shine on 05-07-2022 Calcium [Mass/Vol] 8.7 mg/dL 8.5-10.1 [facility] Serum or plasma creatinine m easurement (mass/volume)Ordered By: Dr. Shine on 05-07-2022 Creatinine [Mass/Vol] 1.24 mg/dL 0.70-1.30 [facility] Comment on above: The validity of the calculated GFR & GFRAA in patients over 70 years has not been determined. Clinical correlation is essential. Serum or plasma urea nitroge n measurement (mass/volume)Ordered By: Dr. Shine on 05-07-2022 Urea nitrogen [Mass/Vol] 11 mg/dL 7-18 [facility] Thin prep Papanicolaou smear with manual screeningOrdered By: Dr. Shine on 05-07-2022 Thin prep Papanicolaou smear with manual screening 29 U/L 15-37 [facility] Thin prep Papanicolaou smear with manual screening 6 5-15 [facility] Urine blood detectionOrdered By: Dr. Shine on 05-07-2022 RBC Ql (U) Negative Negative [facility] Urine clarityOrdered By: Dr. Shine on 05-07-2022 Clarity (U) Clear Clear [facility] Urine color determinationOrd ered By: Dr. Shine on 05-07-2022 Color (U) Yellow Yellow [facility] Urine glucose detectionOrder ed By: Dr. Shine on 05-07-2022 Glucose Ql (U) Normal mg/dl Normal [facility] Urine leukocyte esterase det ection by dipstickOrdered By: Dr. Shine on 05-07-2022 Leukocyte esterase Test strip Ql (U) 100 /ul Negative [facility] Urine pHOrdered By: Dr. Adalgisa sanchez on 05-07-2022 pH (U) 7.0 [pH] 5.0 - 8.0 [facility] Urine specific gravity measu rementOrdered By: Dr. Shine on 05-07-2022 Specific gravity (U) [Rel density] 1.010 1.002-1.030 [facility] Urobilinogen Auto test strip Ql (U)Ordered By: Dr. Shine on 05-07-2022 Urobilinogen Ql (U) 4 mg/dl Normal [facility] Vital Signs Date Time Vital Sign Value Performing Clinician Steveni lity 06-08-2024 15:57-0400 Body temperature 98.4 [degF] Neha Proctor APRN.INTENSIVE CARE MEDICINE SPECIALIST Work Phone: [facility] 06-08-2024 15:57-0400 Body weight 92.4 kg Neha Proctor APRN.INTENSIVE CARE MEDICINE SPECIALIST Work Phone: [facility] 06-08-2024 15:57-0400 Diastolic blood pressure 80 mm[Hg] Neha Proctor PIPE AND TEST SUPERVISOR.INTENSIVE CARE MEDICINE SPECIALIST Work Phone: [facility] 06-08-2024 15:57-0400 Heart rate 88 /min Neha Proctor PIPE AND TEST SUPERVISOR.INTENSIVE CARE MEDICINE SPECIALIST Work Phone: [facility] 06-08-2024 15:57-0400 Respiratory rate 16 /min Neha Proctor APRN.INTENSIVE CARE MEDICINE SPECIALIST Work Phone: [facility] 06-08-2024 15:57-0400 SaO2% (BldA) [Mass fraction] 97 % Neha Proctor PIPE AND TEST SUPERVISOR.INTENSIVE CARE MEDICINE SPECIALIST Work Phone: [facility] 06-08-2024 15:57-0400 Systolic blood pressure 122 mm[Hg] Neha Proctor PIPE AND TEST SUPERVISOR.INTENSIVE CARE MEDICINE SPECIALIST Work Phone: [facility] 02-16-2024 14:25-0500 Body temperature 97.2 [degF] Sera Gallegos PIPE AND TEST SUPERVISOR.INTENSIVE CARE MEDICINE SPECIALIST Work Phone: [facility] 02-16-2024 14:25-0500 Body weight 89.9 kg Sera Gallegos PIPE AND TEST SUPERVISOR.INTENSIVE CARE MEDICINE SPECIALIST Work Phone: [facility] 02-16-2024 14:25-0500 Diastolic blood pressure 64 mm[Hg] [facility] PIPE AND TEST SUPERVISOR.INTENSIVE CARE MEDICINE SPECIALIST Work Phone: [facility] 02-16-2024 14:25-0500 Heart rate 56 /min Sera [facility] PIPE AND TEST SUPERVISOR.INTENSIVE CARE MEDICINE SPECIALIST Work Phone: [facility] 02-16-2024 14:25-0500 Respiratory rate 18 /min Sera [facility] PIPE AND TEST SUPERVISOR.INTENSIVE CARE MEDICINE SPECIALIST Work Phone: [facility] 02-16-2024 14:25-0500 SaO2% (BldA) [Mass fraction] 99 % Sera [facility] PIPE AND TEST SUPERVISOR.INTENSIVE CARE MEDICINE SPECIALIST Work Phone: [facility] 02-16-2024 14:25-0500 Systolic blood pressure 133 mm[Hg] Seraparth [facility] PIPE AND TEST SUPERVISOR.INTENSIVE CARE MEDICINE SPECIALIST Work Phone: [facility] Encounters Encounter Date Encounter Type Care Provider Facility Start: 10-19-2024 ambulatory DORIAN SHINE [facility] Start: 08-11-2024 ambulatory NONE PHYSICIAN Facility :[facility] Start: 07-29-2024 End: 07-29-[address] Dorian Shine MD -[facility] [place] Work Phone: Start: 07-29-2024 End: 07-29-[address] Dorian Shine MD Work Phone: [facility] Work Phone: Start: 06-09-2024 End: 06-09-2024 Follow-up encounter Kesha Canela PIPE AND TEST SUPERVISOR.INTENSIVE CARE MEDICINE SPECIALIST Work Phone: [facility] Start: 06-08-2024 End: 06-08-2024 ambulatory DORIAN SHINE Facility:[facility] Start: 06-08-2024 End: 06-08-2024 Patient encounter procedure Neha Proctor PIPE AND TEST SUPERVISOR.INTENSIVE CARE MEDICINE SPECIALIST Work Phone: [facility] Comment on above: Possible exposure to STD (Primary Dx) Start: 02-17-2024 End: 02-17-2024 Telephone encounter Rosa KEN Work Phone: [facility] Comment on above: Results Start: 02-16-2024 End: 02-16-2024 ambulatory DORIAN SHINE Facility:[facility] Start: 02-16-2024 End: 02-16-2024 Office outpatient visit 15 minutes Sera Rosy JAVIERINTENSIVE CARE MEDICINE SPECIALIST Work Phone: [facility] Comment on above: Possible exposure to STD (Primary Dx) Start: 08-27-2023 End: 08-27-2023 Emergency department patient visit Theron Jaquez Facility:[facility] Start: 05-07-2022 End: 05-07-2022 ambulatory [facility] Work Phone: Start: 05-07-2022 End: 05-07-2022 Patient encounter procedure [facility]-Laboratory, [facility] Procedures Date Procedure Procedure Detail Performing Clinician Start: 07-29-2024 Serologic test for syphilis Dr. Dorian Shine MD Work Phone: Start: 07-29-2024 Serologic test for h erpes simplex Dr. Dorian Shine MD Work Phone: Comment on above: Please note refere nce interval changeHSV-1 IgG testing performed using the [employer] Ele[employer] HSV-1IgG assay. Start: 07-29-2024 Plain X-ray of shoulder Dr. Dorian Shine MD Work Phone: Start: 07-29-2024 End: 07-29-2024 Polymerase chain reaction analysis Dr. Dorian Shine MD Work Phone: Start: 02-16-2024 Urnls dip stick/tabl et rgnt auto w/o microscopy [facility] Provider Plan of Treatment Date Care Activity Detail Author Start: 11-22-2025 Urine microalbumin profile DTaP,Tdap,Td Vaccine (5 - Td or Tdap) [facility] Start: 10-27-2023 Covid-19 Vaccine ( season) Covid-19 Vaccine ( season) [facility] Start: 10-27-2023 Influenza vaccination Influenza Vacc ine (#1) [facility] Start: 05-07-2022 [facility] Start: 01-15-2012 HPV Vaccine (3 - Mal e 3-dose series) HPV Vaccine (3 - Male 3-dose series) [facility] Start: 07-23-2011 Anxiety Screening Anxiety Screening [facility] Start: 07-23-2011 Depression Screening Depression Scre ening [facility] Start: 07-23-2011 Hepatitis C screening Hepatitis C Sc reening [facility] Start: 07-23-2011 HIV screening HIV Screening [facility] Chlamydia trachomatis+Neisseria gonorrhoeae DNA [Presence] in Unspecified specimen by TERESITA with probe detection GONORRHEA/CHLAMYDIA NAAT Lab Routine Possible exposure to STD 02/16/2024 3:06 PM EST [facility] Chlamydia trachomatis+Neisseria gonorrhoeae DNA [Presence] in Unspecified specimen by TERESITA with probe detection GONORRHEA/CHLAMYDIA NAAT Lab Routine Possible exposure to STD Ordered: 06/08/2024 [facility] Work Phone: Comment on above: Ordered: 06/08/2024 TRICHOMONAS VAGINALI S NAAT TRICHOMONAS VAGINALIS NAAT Lab Routine Possible exposure to STD Ordered: 06/08/2024 [facility] Comment on above: Ordered: 06/08/2024 UA DIP OB, URINE (POC) UA DIP OB , URINE (POC) Lab Routine Possible exposure to STD Ordered: 02/16/2024 [facility] Work Phone: Comment on above: Ordered: 02/16/2024 Immunizations Immunization Date Immunization Notes Care Provider Estela carrillo 11-23-2015 influenza virus vaccine, unspecified formulation Sera Gallegos PIPE AND TEST SUPERVISOR.INTENSIVE CARE MEDICINE SPECIALIST Work Phone: [facility] 02-10-2013 hepatitis A vaccine, unspecified formulation Sera Gallegos PIPE AND TEST SUPERVISOR.INTENSIVE CARE MEDICINE SPECIALIST Work Phone: [facility] 02-10-2013 influenza virus vaccine, unspecified formulation Sera Gallegos PIPE AND TEST SUPERVISOR.INTENSIVE CARE MEDICINE SPECIALIST Work Phone: [facility] 09-14-2011 human papilloma viru s vaccine, quadrivalent Sera Gallegos PIPE AND TEST SUPERVISOR.INTENSIVE CARE MEDICINE SPECIALIST Work Phone: [facility] 09-14-2011 Meningococcal, MCV4, unspecified conjugate formulation(groups A, C, Y and W-135) [facility] PIPE AND TEST SUPERVISOR.INTENSIVE CARE MEDICINE SPECIALIST Work Phone: [facility] 04-19-2011 hepatitis A vaccine, unspecified formulation [facility] PIPE AND TEST SUPERVISOR.INTENSIVE CARE MEDICINE SPECIALIST Work Phone: [facility] 04-19-2011 human papilloma viru s vaccine, quadrivalent [facility] PIPE AND TEST SUPERVISOR.INTENSIVE CARE MEDICINE SPECIALIST Work Phone: [facility] 11-11-2006 Meningococcal, MCV4, unspecified conjugate formulation(groups A, C, Y and W-135) [facility] PIPE AND TEST SUPERVISOR.INTENSIVE CARE MEDICINE SPECIALIST Work Phone: [facility] 11-11-2006 tetanus toxoid, reduced diphtheria toxoid, and acellular pertussis vaccine, adsorbed [facility] PIPE AND TEST SUPERVISOR.INTENSIVE CARE MEDICINE SPECIALIST Work Phone: [facility] Work Phone: 09-02-1998 diphtheria, tetanus toxoids and acellular pertussis vaccine [facility] PIPE AND TEST SUPERVISOR.INTENSIVE CARE MEDICINE SPECIALIST Work Phone: [facility] 09-02-1998 measles, mumps and rubella virus vaccine [facility] PIPE AND TEST SUPERVISOR.INTENSIVE CARE MEDICINE SPECIALIST Work Phone: [facility] 09-02-1998 trivalent poliovirus vaccine, live, oral [facility] PIPE AND TEST SUPERVISOR.INTENSIVE CARE MEDICINE SPECIALIST Work Phone: [facility] 01-21-1995 diphtheria, tetanus toxoids and acellular pertussis vaccine [facility] PIPE AND TEST SUPERVISOR.INTENSIVE CARE MEDICINE SPECIALIST Work Phone: [facility] 01-21-1995 haemophilus influenz ae type b vaccine, HbOC conjugate [facility] PIPE AND TEST SUPERVISOR.INTENSIVE CARE MEDICINE SPECIALIST Work Phone: [facility] 09-10-1994 measles, mumps and rubella virus vaccine [facility] PIPE AND TEST SUPERVISOR.INTENSIVE CARE MEDICINE SPECIALIST Work Phone: [facility] 01-31-1994 DTP-Haemophilus influenzae type b conjugate vaccine [facility] PIPE AND TEST SUPERVISOR.INTENSIVE CARE MEDICINE SPECIALIST Work Phone: [facility] 01-31-1994 hepatitis B vaccine, pediatric or pediatric/adolescent dosage Sera Pendlebury PIPE AND TEST SUPERVISOR.INTENSIVE CARE MEDICINE SPECIALIST Work Phone: [facility] 01-31-1994 trivalent poliovirus vaccine, live, oral Sera Pendlebury PIPE AND TEST SUPERVISOR.INTENSIVE CARE MEDICINE SPECIALIST Work Phone: [facility] 1993 DTP-Haemophilus influenzae type b conjugate vaccine Sera Pendlebury PIPE AND TEST SUPERVISOR.INTENSIVE CARE MEDICINE SPECIALIST Work Phone: [facility] 1993 trivalent poliovirus vaccine, live, oral Sera Pendlebury PIPE AND TEST SUPERVISOR.INTENSIVE CARE MEDICINE SPECIALIST Work Phone: [facility] 1995 DTP-Haemophilus influenzae type b conjugate vaccine Sera Pendlebury PIPE AND TEST SUPERVISOR.INTENSIVE CARE MEDICINE SPECIALIST Work Phone: [facility] Work Phone: 1995 hepatitis B vaccine, pediatric or pediatric/adolescent dosage Sera Pendlebury PIPE AND TEST SUPERVISOR.INTENSIVE CARE MEDICINE SPECIALIST Work Phone: [facility] 1995 trivalent poliovirus vaccine, live, oral Sear Pendlebury PIPE AND TEST SUPERVISOR.INTENSIVE CARE MEDICINE SPECIALIST Work Phone: [facility] 1995 hepatitis B vaccine, pediatric or pediatric/adolescent dosage Sera Pendlebury PIPE AND TEST SUPERVISOR.INTENSIVE CARE MEDICINE SPECIALIST Work Phone: [facility] Payers Date Payer Category Payer Unknown [id number] 2023 Self-pay [id number] 2023 Unknown [id number] 2018 Unknown MMO MMO [employer] PPO [id number] 2018-Present [phone] [address] [place] [address] PPO [id number] 2018 Unknown [id number] 1995 Unknown [id number] Unknown [id number] Unknown [id number] Social History Date Type Detail Facility Start: 10-19-2014 Tobacco smoking stat us NDIS Unknown if ever smoked [facility] Start: 1995 Sex Assigned At Male [facility] Start: 08-27-2023 End: 02-16-2024 Tobacco smoking status NHIS Never smoked tobacco [facility] Start: 02-16-2024 Tobacco use and exposure Smokeless tobacco non-user [facility] Start: 02-16-2024 Alcoholic beverage intake Current non-drinker of alcohol (finding) [facility] Start: 02-02-2020 End: 02-16-2024 History of Social function [facility] Start: 02-02-2020 End: 02-16-2024 Tobacco use panel [facility] National Score (1-10 0), lower number is lower risk Not on file [facility] Start: 1995 Sex assigned at Not on file [facility] Functional Status Date Assessment Result Facility 01-12-2014 Are you deaf, or do you have serious difficulty hearing No 01/12/2014 3:58 PM Beckie Scott RN No [facility] 01-12-2014 Are you blind, or do you have serious difficulty seeing, even when wearing glasses No 01/12/2014 3:58 PM Beckie Scott RN No [facility] 01-12-2014 Do you have serious difficulty walking or climbing stairs No 01/12/2014 3:58 PM Beckie Scott RN No [facility] 01-12-2014 Do you have difficul ty dressing or bathing No 01/12/2014 3:58 PM Beckie Scott RN No [facility] 01-12-2014 Because of a physica l, mental, or emotional condition, do you have difficulty doing errands alone such as visiting a physician's office or shopping No 01/12/2014 3:58 PM Beckie Scott RN No [facility] Mental Status Date Assessment Result Facility 01-12-2014 Because of a physica l, mental, or emotional condition, do you have serious difficulty concentrating, remembering, or making decisions Yes 01/12/2014 3:58 PM Beckie Scott RN Yes [facility] Clinical Notes 02-16-2024 to 07-29-2024 Telephone Encounter - Angy Mullen LPN - 06/09/2024 7:57 AM EDTTelephone Encounter - Angy Mullen LPN - 06/09/2024 7:57 AM EDTNeha Proctor APRN.[facility] - 06/08/2024 4:08 PM EDT Note Date & Type Note Facility 07-29-2024 Radiology Diagnostic study note [facility] Imaging Services [address] [place] [address] [id number] Shoulder min 2 Views MR#: [id number] Acct: [id number] Name: VIAN OVIEDO Rep #: [id number] : 1995 M 29 From: Viky Jaimes MD PCP: Dr. Dorian Shine MD Status: REG CLI Study:Shoulder min 2 Views Date of Exam: 07/29/24 Exam# [id number] Ordering Dr: Dashawn Shine MD PROCEDURE: SHOULDER MIN 2 VIEWS 07/29/2024 REASON FOR EXAM: PAIN RT SHOUDER TECHNIQUE: Four views of the right shoulder COMPARISON: None RAD/Shoulder min 2 Views IMPRESSION: No acute fracture or dislocations. No acute soft tissue abnormalities. No radiographic foreign body. Reading Location: [id number] CC: Dr. Dorian Shine MD ~ Rn Cardiovascular Icu: Signed [facility] 06-09-2024 Telephone encount er Note Patient notified.Angy Mullen LPN [facility] 06-09-2024 Miscellaneous Notes Formattin g of this note might be different from the original. Patient notified.Angy Mullen LPN Negative for trichomonas, chlamydia, gonorrhea. Please call and notify thank you documented in this encounter [facility] 06-09-2024 Telephone encount er Note Negative for trichomonas, chlamydia, gonorrhea. Please call and notify thank you [facility] Work Phone: 06-08-2024 Note HNO ID: [id number] Author: NEHA PROCTOR APRN.INTENSIVE CARE MEDICINE SPECIALIST Service: ? Author Type: Nurse Practitioner Type: Progress Notes Filed: 06/08/2024 16:38 Note Text: [facility] Subjective HPI HPI Ivan Oviedo [...] NAAT - TRICHOMONAS VAGINALIS NAAT Neha Proctor APRN.INTENSIVE CARE MEDICINE SPECIALIST History and Record Review External record(s) reviewed: prior outpatient record. Disposition The patient was discharged. Procedures [facility] 06-08-2024 History of Presen t illness Narrative [facility] Subjective HPI HPI Ivan Oviedo [...] NAAT - TRICHOMONAS VAGINALIS NAAT Neha Proctor APRN.[facility] History and Record Review External record(s) reviewed: prior outpatient record. Disposition The patient was discharged. Procedures documented in this encounter [facility] 02-17-2024 Telephone encount er Note Patient notified of results, verbalizes understanding of instructions. Eloisa Leal MA [facility] 02-17-2024 Miscellaneous Notes Formattin g of this note might be different from the original. Patient notified of results, verbalizes understanding of instructions. Eloisa Leal MA Negative for chlamydia and gonorrhea documented in this encounter [facility] 02-17-2024 Telephone encount er Note Negative for chlamydia and gonorrhea [facility] Work Phone: 02-16-2024 Note HNO ID: [id number] Author: SERA GALLEGOS APRN.[facility] Service: ? Author Type: Nurse Practitioner [...] 08/29/2006 REPAIR NASAL SEPTUM DEFECT 2012 TENDON TRANSPLANT/TRANSFER 04/29/2013 pins in toes ALLERGIES [...] of care. This note was generated using MyTime software. It may contain er (more content not included)... [facility] 02-16-2024 History of Presen t illness [...] 08/29/2006 REPAIR NASAL SEPTUM DEFECT 2012 TENDON TRANSPLANT/TRANSFER 04/29/2013 pins in toes ALLERGIES [...] of care. This note was generated using MyTime software. It may contain errors in wording, punctuation, or spelling. Sera Gallegos APRN.INTENSIVE CARE MEDICINE SPECIALIST documented in this encounter [facility] Evaluation note No assessment inform ation available [facility] Work Phone: Evaluation note Diagnosis Possible exposure to STD- Primary Other specified personal history presenting hazards to health documented [facility] this encounter [facility] Possible exposure to STD- Primary Other specified personal history presenting hazards to health documented in this encounter [facility] (narrative)No reason for referral information [facility] Work Phone: Advance Directives No Advanced Directives Records Found Advance Directive Response Recorded Date/ Time Advance Directives No June 30, 2013 8:46am Living Will No October 19, 201 5 3:17am Power of Passenger Service Manager No October 19, 2 015 3:17am Advance Directive Response Recorded Date/ Time Advance Directives No June 30, 2013 8:46am Chief Complaint and Reason for Visit Chief Complaint Admit Date RIGHT SHOULDER PAIN July 29, 2024 4:07p m Summary Purpose Family History No Family History Records FoundNo Family History Records FoundNo Family History Records Found Additional Source Comments Care Teams (unrecognized sec tion and content) Team Status: Active Member Role Status Dates Dr. Dion Shine MD Family Provider Active Dr. Dion Shine MD Primary Care Provider Activ e Team Status: Inactive Member Role Status Dates Dr. Dion Shine MD Primary Care Provider, Atte nding Provider Active Anesthesia Attending Relationship Specialty Start Date End Date Dorian Shine MD [address] [place], [place] [id number] PCP - General Family Medicine 07/24/17 Anesthesia Attending Relationship Specialty Start Date End Date Dorian Shine MD [address] [place], [place] [id number] PCP - General Family Medicine 07/24/17 Anesthesia Attending Relationship Specialty Start Date End Date Dorian Shine MD [address] [place], [place] [id number] PCP - General Family Medicine 07/24/17 Anesthesia Attending Relationship Specialty Start Date End Date Dorian Shine MD [address] [place] [id number] PCP - General Family Medicine 07/24/17 Team Status: Active Member Role Status Dates Dr. Dorian Shine MD Family Provider Active Dr. Dorian Shine MD Primary Care Provider Acti ve Team Status: Inactive Member Role Status Dates Dr. Dorian Shine MD Primary Care Provider Acti ve Start: July 29, 2024 End: July 29, 2024 Dr. Dorian Shine MD Attending Provider Active Start: July 29, 2024 End: July 29, 2024 Dr. Dorian Shine MD Referring Provider Active Start: July 29, 2024 End: July 29, 2024 Goals (unrecognized section and content) Goals may be documented in a n alternate sectionGoals may be documented in an alternate section Source Comments (unrecognize d section and content) In the event this informatio n is protected by the Federal Confidentiality of Alcohol and Drug Abuse Patient Records regulations: The Federal rules restrict any use of the information to criminally investigate or prosecute any alcohol or drug abuse patient.[facility] the event this information is protected by the Federal Confidentiality of Alcohol and Drug Abuse Patient Records regulations: The Federal rules restrict any use of the information to criminally investigate or prosecute any alcohol or drug abuse patient.[facility] the event this information is protected by the Federal Confidentiality of Alcohol and Drug Abuse Patient Records regulations: The Federal rules restrict any use of the information to criminally investigate or prosecute any alcohol or drug abuse patient.[facility] the event this information is protected by the Federal Confidentiality of Alcohol and Drug Abuse Patient Records regulations: The Federal rules restrict any use of the information to criminally investigate or prosecute any alcohol or drug abuse patient.[facility] Reason for Visit (unrecogniz ed section and content) Reason Comments STD Gonorrhea exposure p ossible Reason Comments Results Reason Comments Std Exposure (unrecognized sect ion and content) No Status Records FoundNo Status Records FoundNo Status Records Found INFORMATION SOURCE (unrecogn ized section and content) DATE CREATED AUTHOR 08/05/2024 [facility] DATE CREATED AUTHOR AUTHOR'S ORGANIZ ATION 08/13/2024 [facility] DATE CREATED AUTHOR AUTHOR'S ORGANIZ ATION 10/20/2024 [facility] FOR RECORDS PERTAINING TO PATIENTS WHO ARE [...] BE BASED ON THE PRIMARY CLINICAL RECORDS. [employer] [facility]. provides no warranty or guarantee of the accuracy or completeness of information in this document.
== END | disposition home or self-care (01) ==
PROVIDERS: PCP Family Medicine
DX: Z11.3 Encounter for screening for infections with a predominantly sexual mode of transmission (principal)
CPT/HCPCS: 87491; 87529; 87591